=== PATIENT | female | born 1965 | race African-American/Black ===

== ENCOUNTER 2017-03-09 10:16 | Inpatient (IN) | payer OTHER ==
[2017-03-09 10:38] VITALS: BMI 19.3
--- NOTE | 2017-03-09 13:43 | HP ---
CIWA Score - CIWA Score Nausea/Vomitin-No Nausea/No Vomiting Muscle Tremors: 4-Moderate,w/Arms Extend Anxiety: 3 Agitation: 4-Moderately Restless Paroxysmal Sweats: 3 Orientation: 0-Oriented Tacttile Disturbances: 0-None Auditory Disturbances: 0-None Visual Disturbances: 0-None Headache: 1-Very Mild CIWA-Ar Total Score: 15 Admission ROS BHS - HPI Chief Complaint: I am here for detox. Allergies/Adverse Reactions: Allergies Allergy/AdvReac Type Severity Reaction Status Date / Time No Known Drug Allergies Allergy Unknown Verified 03/09/17 11:26 History of Present Illness: Pt is a 51yr old female with a history of alcohol and cocaine dependence seeking detox for treatment. Exam Limitations: Physical Impairment (unsteady gait d/t neuropathy. pt uses a walker) - Ebola screening Have you traveled outside of the country in the last 21 days: No Have you had contact with anyone from an Ebola affected area: No Have you been sick,other than usual withdrawal symptoms: No Do you have a fever: No - Review of Systems Constitutional: Chills, Changes in sleep EENT: reports: Blurred Vision (wear glasses) Respiratory: reports: No Symptoms reported Cardiac: reports: No Symptoms Reported GI: reports: Diarrhea, Poor Fluid Intake, Indigestion : reports: No Symptoms Reported Musculoskeletal: reports: Back Pain, Muscle Pain, Other (neuropathy lower legs) Integumentary: reports: Flushing, Sweating Neuro: reports: Headache, Tingling, Tremors Endocrine: reports: Excessive Sweating, Flushing, Intolerance to Cold, Intolerance to Heat Psychiatric: reports: No Sypmtoms Reported, Judgement Intact, Orientated x3, Agitated, Anxious Other Systems: Reviewed and Negative Patient History - Patient Medical History Hx Anemia: No Hx Asthma: Yes Hx Chronic Obstructive Pulmonary Disease (COPD): No Hx Cancer: No Hx Cardiac Disorders: No Hx Congestive Heart Failure: No Hx Hypertension: No Hx Hypercholesterolemia: No Hx Pacemaker: No HX Cerebrovascular Accident: No Hx Seizures: No Hx Dementia: No Hx Diabetes: No Hx Gastrointestinal Disorders: No Hx Liver Disease: No Hx Genitourinary Disorders: No Hx Sexually Transmitted Disorders: No Hx Renal Disease (ESRD): No Hx Thyroid Disease: No Hx Human Immunodeficiency Virus (HIV): Yes (in 1989; TCELLS 389 06/2014; viral load 1100) Hx Hepatitis C: No (negative) Hx Depression: Yes Hx Suicide Attempt: No (denies) Hx Bipolar Disorder: No Hx Schizophrenia: No Other Medical History: insomnia - Patient Surgical History Past Surgical History: Yes Hx Neurologic Surgery: No Hx Cataract Extraction: No Hx Cardiac Surgery: No Hx Lung Surgery: No Hx Breast Surgery: No Hx Breast Biopsy: No Hx Abdominal Surgery: Yes (right inguinal hernia in 11/25) Hx Appendectomy: No Hx Cholecystectomy: No Hx Genitourinary Surgery: No Hx Section: Yes (c/s x 2,last 23 years ago) Hx Orthopedic Surgery: No Other Surgical History: Inguinal hernia Anesthesia Reaction: No - PPD History Previous Implant?: Yes Documented Results: Negative w/o proof Implanted On Prior R Admission?: Yes PPD to be Administered?: Yes - Reproductive History Patient is a Female of Child Bearing Age (11 -55 yrs old): No Last Menstrual Period: 09/05/07 Patient : No - Smoking Cessation Smoking history: Current every day smoker Have you smoked in the past 12 months: Yes Aproximately how many cigarettes per day: 10 Cigars Per Day: 0 Hx Chewing Tobacco Use: No Initiated information on smoking cessation: Yes 'Breaking Loose' booklet given: 03/09/17 - Substance & Tx. History Hx Alcohol Use: Yes Hx Substance Use: Yes Substance Use Type: Alcohol, Cocaine Hx Substance Use Treatment: Yes (last detox detox 2013 at [facility]) - Substances Abused Crack Route: Smoking Frequency: 3-6 times per week Amount used: $50-100 Age of first use: 27 Date of Last Use: 03/08/17 Alcohol-beer/vodka/brrandy Route: Oral Frequency: Daily Amount used: 1 1/2-6 pks./1 pt. Age of first use: 13 Date of Last Use: 03/09/17 Family Disease History - Family Disease History Family Disease History: Other: Father (alcoholic ), Mother (alcoholic) Admission Physical Exam BHS - Vital Signs Vital Signs: Vital Signs - 24 hr 03/09/17 10:35 Temperature 96.9 F L Pulse Rate 69 Respiratory 18 Rate Blood Pressure 125/95 - Physical General Appearance: Yes: Appropriately Dressed, Moderate Distress, Thin, Tremorous, Irritable, Sweating, Anxious HEENTM: Yes: Hearing grossly Normal, Normal Voice Respiratory: Yes: Lungs Clear, Normal Breath Sounds, No Respiratory Distress Neck: Yes: No masses,lesions,Nodules Breast: Yes: Within Normal Limits Cardiology: Yes: Regular Rhythm, Regular Rate, S1, S2 Abdominal: Yes: Normal Bowel Sounds, Non Tender, Soft Genitourinary: Yes: Within Normal Limits Back: Yes: Normal Inspection Musculoskeletal: Yes: Back pain, Other (neuropathy to lower extremities) Extremities: Yes: Normal Inspection, Non-Tender, Tremors Neurological: Yes: Fully Oriented, Alert, Normal Response Integumentary: Yes: Normal Color, Diaphoresis Lymphatic: Yes: Within Normal Limits - Diagnostic (1) Alcohol dependence with uncomplicated withdrawal Current Visit: Yes Status: Chronic (2) Asthma Current Visit: Yes Status: Chronic Qualifiers: Asthma severity: mild intermittent Asthma complication type: uncomplicated Qualified Code(s): J45.20 - Mild intermittent asthma, uncomplicated (3) Cocaine dependence Current Visit: Yes Status: Chronic (4) HIV disease Current Visit: Yes Status: Chronic Comment: viral load 1100 CD4 389 (5) Nicotine dependence Current Visit: Yes Status: Chronic Qualifiers: Nicotine product type: cigarettes Substance use status: uncomplicated Qualified Code(s): F17.210 - Nicotine dependence, cigarettes, uncomplicated (6) Polyneuropathy Current Visit: Yes Status: Chronic Cleared for Admission [facility] - Detox or Rehab [facility] Level of Care: Medically Managed Detox Regimen/Protocol: Librium [facility] Breath Alcohol Content Breath Alcohol Content: 0.010 Urine Pregancy Test - Result Urine Test Results: Negative- NO Line Present Urine Drug Screen - Results Drug Screen Negative: No Urine Drug Screen Results: TERESITA-Cocaine
[2017-03-09] MEDS ORDERED: guaiFENesin/D-METHORPHAN HB 10 ML UNIT-DOSE CUPS PO PRN (13:45)
[2017-03-09] MEDS ORDERED: MENTHOL/PHENOL 1 EACH UD MM PRN (13:45)
[2017-03-09] MEDS ORDERED: diphenhydrAMINE HCL 50 MG CAPSULE PO PRN (13:45)
[2017-03-09] MEDS ORDERED: LOPERAMIDE HCL 2 MG CAPSULE PO PRN (13:45)
[2017-03-09] MEDS ORDERED: P-EPHED 60MG/TRIPROLIDI 2.5MG TABLET PO PRN (13:45)
[2017-03-09] MEDS ORDERED: MAGNESIUM HYDROX 2400MG/30ML ORAL SUSPENSION 30 ML CUP PO PRN (13:45)
[2017-03-09] MEDS ORDERED: IBUPROFEN 400 MG TABLET (FP) PO PRN (13:45)
[2017-03-09] MEDS ORDERED: MAGNESIUM CITRATE 300 ML BOTTLE PO PRN (13:45)
[2017-03-09] MEDS ORDERED: NICOTINE POLACRILEX 4 MG GUM BC PRN (13:45)
[2017-03-09] MEDS ORDERED: ACETAMINOPHEN 325 MG TABLET (FP) PO PRN (13:45)
[2017-03-09] MEDS ORDERED: hydrOXYzine PAMOATE 50 MG CAPSULE (FP) PO PRN (13:45)
[2017-03-09] MEDS ORDERED: MAG HYDROX/AL HYDROX/SIMETH 30 ML UNIT-DOSE CUP PO PRN (13:45)
[2017-03-09] MEDS ORDERED: chlordiazePOXIDE HCL 25 MG CAPSULE PO PRN (13:45)
[2017-03-09] MEDS ORDERED: ALBUTEROL SO4 6.7 GM HFA INHALER IH PRN (13:47)
[2017-03-09] MEDS ORDERED: chlordiazePOXIDE HCL 25 MG CAPSULE PO ONE (14:15)
--- NOTE | 2017-03-09 16:20 | EKG ---
Test Reason : Blood Pressure : / mmHG Vent. Rate : 069 BPM Atrial Rate : 069 BPM P-R Int : 164 ms QRS Dur : 086 ms QT Int : 426 ms P-R-T Axes : 072 059 064 degrees QTc Int : 456 ms NORMAL SINUS RHYTHM POSSIBLE ANTERIOR INFARCT , AGE UNDETERMINED ABNORMAL ECG NO PREVIOUS ECGS AVAILABLE Confirmed by KATIE STOKES MD ([id number]) on 03/09/2017 4:19:58 PM Referred By: Confirmed By:KATIE STOKES MD
[2017-03-09 17:04] LABS: MCH 28.3 pg (25.7-33.7); MCHC 32.9 g/dl (32.0-36.0); MEAN CELL VOLUME 86.1 fl (80-96); MEAN PLT VOLUME 10.9 fl (7.5-11.1); PLATELET COUNT 150 K/MM3 (134-434); RDW 15.6 % (11.6-15.6); WHITE BLOOD COUNT 3.4 K/mm3 (4.0-10.0)
[2017-03-09 17:10] LABS: URINE APPEARANCE CLEAR; URINE BILIRUBIN NEGATIVE (NEGATIVE); URINE BLOOD NEGATIVE (NEGATIVE); URINE COLOR LTYELLOW; URINE GLUCOSE (UA) NEGATIVE (NEGATIVE); URINE KETONE NEGATIVE (NEGATIVE); URINE LEUK ESTERASE NEGATIVE (NEGATIVE); URINE NITRITE NEGATIVE (NEGATIVE); URINE PROTEIN NEGATIVE (NEGATIVE); URINE UROBILINOGEN NEGATIVE mg/dL (0.2-1.0)
[2017-03-09 17:17] LABS: ALBUMIN 3.6 g/dl (3.4-5.0); ANION GAP 0 (8-16); CALCIUM 9.4 mg/dL (8.5-10.1); CO2 36 mmol/L (21-32); GLUCOSE,RANDOM 93 mg/dL (74-106)
[2017-03-09 17:20] LABS: ALK PHOS 69 U/L (45-117); BILIRUBIN,TOTAL 1.7 mg/dL (0.2-1.0); CREATININE 0.9 mg/dL (0.55-1.02); SGOT/AST 50 U/L (15-37); SGPT/ALT 63 U/L (12-78); TOT PROT 7.5 g/dl (6.4-8.2)
[2017-03-09] MEDS: chlordiazePOXIDE HCL 25 MG CAPSULE PO SCH ×2 (17:45→22:18)
[2017-03-09] MEDS: THIAMINE HCL 100 MG TABLET (FP) PO SCH (22:16)
[2017-03-10] MEDS: chlordiazePOXIDE HCL 25 MG CAPSULE PO SCH ×4 (07:07→23:09)
[2017-03-10] MEDS: ATAZANAVIR SO4 300 MG CAPSULE PO SCH (09:08)
[2017-03-10] MEDS: RITONAVIR 100 MG TABLET PO SCH (09:08)
[2017-03-10] MEDS: EMTRICITABINE 200MG/TENOFOVIR 300MG PO SCH (09:09)
[2017-03-10] MEDS: SULFAMETHOXAZOLE/TRIMETHOPRIM 800MG/160MG D.S. TABLET PO SCH (10:39)
[2017-03-10] MEDS: PRENATAL VITAMINS W/ FOLIC ACID TABLET (FP) PO SCH (10:39)
[2017-03-10] MEDS: NICOTINE 21 MG/24 HOURS TOPICAL PATCH TD SCH (10:41)
--- NOTE | 2017-03-10 11:59 | PN ---
[facility] CIWA - CIWA Score Nausea/Vomitin-No Nausea/No Vomiting Muscle Tremors: 3 Anxiety: 2 Agitation: 3 Paroxysmal Sweats: 3 Orientation: 0-Oriented Tacttile Disturbances: 0-None Auditory Disturbances: 0-None Visual Disturbances: 0-None Headache: 0-None Present CIWA-Ar Total Score: 11 [facility] Progress Note (SOAP) Subjective: tired sleepy sweats interrupted sleep Objective: 03/10/17 11:58 Vital Signs Temperature 97.5 F L 03/10/17 10:37 Pulse Rate 86 03/10/17 10:37 Respiratory Rate 18 03/10/17 10:37 Blood Pressure 115/74 03/10/17 10:37 O2 Sat by Pulse Oximetry (%) Laboratory Tests 03/09/17 03/09/17 03/09/17 14:00 14:00 14:00 WBC 3.4 L RBC 3.89 Hgb 11.0 D Hct 33.5 MCV 86.1 MCH 28.3 MCHC 32.9 RDW 15.6 Plt Count 150 MPV 10.9 D Sodium 139 Potassium 4.5 Chloride 103 Carbon Dioxide 36 H D Anion Gap 0 L BUN 13 D Creatinine 0.9 D Creat Clearance w eGFR > 60 Random Glucose 93 Calcium 9.4 Total Bilirubin 1.7 H D AST 50 H D ALT 63 D Alkaline Phosphatase 69 D Total Protein 7.5 Albumin 3.6 Urine Color Urine Appearance Urine pH Ur Specific [place] Urine Protein Urine Glucose (UA) Urine Ketones Urine Blood Urine Nitrite Urine Bilirubin Urine Urobilinogen Ur Leukocyte Esterase RPR Titer Nonreactive 03/09/17 15:00 WBC RBC Hgb Hct MCV MCH MCHC RDW Plt Count MPV Sodium Potassium Chloride Carbon Dioxide Anion Gap BUN Creatinine Creat Clearance w eGFR Random Glucose Calcium Total Bilirubin AST ALT Alkaline Phosphatase Total Protein Albumin Urine Color Ltyellow Urine Appearance Clear Urine pH 7.0 Ur Specific [place] 1.015 Urine Protein Negative Urine Glucose (UA) Negative Urine Ketones Negative Urine Blood Negative Urine Nitrite Negative Urine Bilirubin Negative Urine Urobilinogen Negative Ur Leukocyte Esterase Negative RPR Titer awake/alert lying in bed no acute distress Assessment: 03/10/17 11:58 withdrawal sx Plan: hold 10am librium increase fluids
--- NOTE | 2017-03-10 15:42 | CONSULT ---
[facility] Psychiatric Consult - Data Date of interview: 03/10/17 Admission source: [facility] Identifying data: Readmission to [facility] for this 51 y/o AA female seeeking detox treatment on for alcohol and cocaine (crack) dependence.Patient is ,a mother of two,domiciled,unemployed and supported on SSI benefits. Substance Abuse History: Confirmed by patient in my interview. Smoking Cessation. Smoking history: Current every day smoker. Have you smoked in the past 12 months: Yes. Aproximately how many cigarettes per day: 10. Cigars Per Day: 0. Hx Chewing Tobacco Use: No. Initiated information on smoking cessation : Yes. 'Breaking Loose' booklet given: 03/09/17. - Substance & Tx. History. Hx Alcohol Use: Yes. Hx Substance Use: Yes. Substance Use Type: Alcohol, Cocaine. Hx Substance Use Treatment: Yes (last detox detox [address] [facility]). - Substances Abused. Crack. Route: Smoking. Frequency: 3-6 times per week. Amount used: $50-100. Age of first use: 27. Date of Last Use: . Alcohol-beer/vodka/brrandy. Route: Oral. Frequency: Daily. Amount used: 1 1/2-6 pks./1 pt. Age of first use: 13. Date of Last Use: 03/09/17 Medical History: Significant for bronchial asthma,HIV infection since 1989 ( history of pneumocystis carinii pneumonia),hepatitis B and neuropathy.Noted additional history of right inguinal herniorraphy. Psychiatric History: Patient denies history of psychiatric illness or hospitalizations.Ms Kim reports that she was prescribed seroquel 25 mg/hs for insomnia (in the course of a medical admisssion at [facility] ) in the past.No history of suicide attempts. Physical/Sexual Abuse/Trauma History: Patient denies. Additional Comment: Urine Drug Screen Results: TERESITA-Cocaine.Noted. Mental Status Exam - Mental Status Exam Alert and Oriented to: Time, Place, Person Cognitive Function: Good Patient Appearance: Well Groomed Mood: Nervous, Withdrawn Affect: Mood Congruent Patient Behavior: Sedated (mildly sedated), Fatigued Speech Pattern: Clear Voice Loudness: Moderately Soft/Quiet Thought Process: Intact, Goal Oriented Thought Disorder: Not Present Hallucinations: Denies Suicidal Ideation: Denies Homicidal Ideation: Denies Insight/Judgement: Poor Sleep: Poorly, Difficulty falling asleep (requests a low dose of seroquel) Appetite: Poor, Weight loss Gait/Station: Other (ambulates with a walker) Psychiatric Findings - Problem List (Ephra[place] 1, 2,3) (1) Alcohol dependence with uncomplicated withdrawal Current Visit: Yes Status: Acute (2) Cocaine dependence Current Visit: Yes Status: Acute (3) Nicotine dependence Current Visit: Yes Status: Acute Qualifiers: Nicotine product type: cigarettes Substance use status: uncomplicated Qualified Code(s): F17.210 - Nicotine dependence, cigarettes, uncomplicated (4) Asthma Current Visit: Yes Status: Chronic Qualifiers: Asthma severity: mild intermittent Asthma complication type: uncomplicated Qualified Code(s): J45.20 - Mild intermittent asthma, uncomplicated (5) HIV disease Current Visit: Yes Status: Chronic Comment: viral load 1100 CD4 389 (6) Polyneuropathy Current Visit: Yes Status: Chronic (7) Insomnia Current Visit: Yes Status: Acute - Initial Treatment Plan Initial Treatment Plan: Psychoeducation provided.Detoxification in progress.Seroquel 25 mg po hs (patient's request).Side effects/benefits discussed with the patient.Ms Kim is in agreement with this careplan.Observation and falls precautions.
[2017-03-10] MEDS ORDERED: QUEtiapine FUMARATE 25 MG TABLET (FP) PO SCH (22:00)
[2017-03-10] MEDS: THIAMINE HCL 100 MG TABLET (FP) PO SCH (23:06)
[2017-03-11] MEDS: chlordiazePOXIDE HCL 25 MG CAPSULE PO SCH ×2 (06:38→11:09)
[2017-03-11 10:47] VITALS: BP 120/69; PULSE 82; TEMP 98.2
[2017-03-11] MEDS: RITONAVIR 100 MG TABLET PO SCH (11:06)
[2017-03-11] MEDS: EMTRICITABINE 200MG/TENOFOVIR 300MG PO SCH (11:06)
[2017-03-11] MEDS: SULFAMETHOXAZOLE/TRIMETHOPRIM 800MG/160MG D.S. TABLET PO SCH (11:07)
[2017-03-11] MEDS: PRENATAL VITAMINS W/ FOLIC ACID TABLET (FP) PO SCH (11:07)
[2017-03-11] MEDS: ATAZANAVIR SO4 300 MG CAPSULE PO SCH (11:07)
[2017-03-11] MEDS: NICOTINE 21 MG/24 HOURS TOPICAL PATCH TD SCH (11:09)
--- NOTE | 2017-03-11 12:20 | PN ---
S CIWA - CIWA Score Nausea/Vomitin Muscle Tremors: 3 Anxiety: 2 Agitation: 2 Paroxysmal Sweats: No Perspiration Orientation: 0-Oriented Tacttile Disturbances: 1-Very Mild Itch/Numbness Auditory Disturbances: 1-Very Mild Visual Disturbances: 1-Very Mild Sensitivity Headache: 2-Mild CIWA-Ar Total Score: 14 S Progress Note (SOAP) Subjective: alert,irritable,anxious,interrupted sleep, Objective: 03/11/17 12:18 Vital Signs Temperature 98.2 F 03/11/17 10:00 Pulse Rate 82 03/11/17 10:00 Respiratory Rate 18 03/11/17 10:00 Blood Pressure 120/69 03/11/17 10:00 O2 Sat by Pulse Oximetry (%) Laboratory Last Values WBC 3.4 K/mm3 (4.0-10.0) L 03/09/17 14:00 RBC 3.89 M/mm3 (3.60-5.2) 03/09/17 14:00 Hgb 11.0 GM/dL (10.7-15.3) D 03/09/17 14:00 Hct 33.5 % (32.4-45.2) 03/09/17 14:00 MCV 86.1 fl (80-96) 03/09/17 14:00 MCH 28.3 pg (25.7-33.7) 03/09/17 14:00 MCHC 32.9 g/dl (32.0-36.0) 03/09/17 14:00 RDW 15.6 % (11.6-15.6) 03/09/17 14:00 Plt Count 150 K/MM3 (134-434) 03/09/17 14:00 MPV 10.9 fl (7.5-11.1) D 03/09/17 14:00 Sodium 139 mmol/L (136-145) 03/09/17 14:00 Potassium 4.5 mmol/L (3.5-5.1) 03/09/17 14:00 Chloride 103 mmol/L (98-107) 03/09/17 14:00 Carbon Dioxide 36 mmol/L (21-32) H D 03/09/17 14:00 Anion Gap 0 (8-16) L 03/09/17 14:00 BUN 13 mg/dL (7-18) D 03/09/17 14:00 Creatinine 0.9 mg/dL (0.55-1.02) D 03/09/17 14:00 Creat Clearance w eGFR > 60 (>60) 03/09/17 14:00 Random Glucose 93 mg/dL (74-106) 03/09/17 14:00 Calcium 9.4 mg/dL (8.5-10.1) 03/09/17 14:00 Total Bilirubin 1.7 mg/dL (0.2-1.0) H D 03/09/17 14:00 AST 50 U/L (15-37) H D 03/09/17 14:00 ALT 63 U/L (12-78) D 03/09/17 14:00 Alkaline Phosphatase 69 U/L (45-117) D 03/09/17 14:00 Total Protein 7.5 g/dl (6.4-8.2) 03/09/17 14:00 Albumin 3.6 g/dl (3.4-5.0) 03/09/17 14:00 Urine Color Ltyellow 03/09/17 15:00 Urine Appearance Clear 03/09/17 15:00 Urine pH 7.0 (5.0-8.0) 03/09/17 15:00 Ur Specific [place] 1.015 (1.005-1.025) 03/09/17 15:00 Urine Protein Negative (NEGATIVE) 03/09/17 15:00 Urine Glucose (UA) Negative (NEGATIVE) 03/09/17 15:00 Urine Ketones Negative (NEGATIVE) 03/09/17 15:00 Urine Blood Negative (NEGATIVE) 03/09/17 15:00 Urine Nitrite Negative (NEGATIVE) 03/09/17 15:00 Urine Bilirubin Negative (NEGATIVE) 03/09/17 15:00 Urine Urobilinogen Negative mg/dL (0.2-1.0) 03/09/17 15:00 Ur Leukocyte Esterase Negative (NEGATIVE) 03/09/17 15:00 RPR Titer Nonreactive (NONREACTIVE) 03/09/17 14:00 Assessment: 03/11/17 12:19 withdrawal symptom Plan: continue detox
--- NOTE | 2017-03-11 12:22 | PN ---
S Progress Note Note: patient did not want to complete treatment for personal reason,seen by counselor ,signed release ama
--- NOTE | 2017-03-11 12:27 | DS ---
[facility] Detox Discharge Summary Admission Date: 03/09/17 Discharge Date: 03/11/17 - History Present History: Alcohol Dependence, Cocaine Dependence Additional Comments: follow up with after [facility] program as arrangement Pertinent Past History: asthma hiv nicotine dependence polyneuropathy insomnia ambulate with walker - Physical Exam Results Vital Signs: Vital Signs Temperature 98.2 F 03/11/17 10:00 Pulse Rate 82 03/11/17 10:00 Respiratory Rate 18 03/11/17 10:00 Blood Pressure 120/69 03/11/17 10:00 O2 Sat by Pulse Oximetry (%) Pertinent Admission Physical Exam Findings: withdrawal symptom - Treatment Patient has Accepted a Rehab Referral to: declined - Medication Discharge Medications: Ambulatory Orders Emtricitabine/Tenofovir [Truvada 200 mg-300 mg Tablet] 1 each PO DAILY 11/09/12 Quetiapine Fumarate [Seroquel -] 50 mg PO HS #30 tab 08/29/14 Albuterol Sulfate Inhaler - [Ventolin HFA Inhaler -] 2 inh IH Q4H PRN #1 inh Atazanavir [Reyataz -] 300 mg PO DAILY@0800 #30 capsule 09/01/14 Ritonavir [Norvir -] 100 mg PO DAILY #30 tab 09/01/14 Sulfamethoxazole/Trimethoprim [Bactrim Ds Tablet] 1 each PO DAILY 02/05/15 Quetiapine Fumarate [Seroquel -] 25 mg PO HS #30 tablet 03/10/17 - Diagnosis (1) Alcohol dependence with uncomplicated withdrawal Current Visit: Yes Status: Acute (2) Cocaine dependence Current Visit: Yes Status: Acute (3) Insomnia Current Visit: Yes Status: Acute (4) Nicotine dependence Current Visit: Yes Status: Acute Qualifiers: Nicotine product type: cigarettes Substance use status: uncomplicated Qualified Code(s): F17.210 - Nicotine dependence, cigarettes, uncomplicated (5) Asthma Current Visit: Yes Status: Chronic Qualifiers: Asthma severity: mild intermittent Asthma complication type: uncomplicated Qualified Code(s): J45.20 - Mild intermittent asthma, uncomplicated (6) HIV disease Current Visit: Yes Status: Chronic (7) Polyneuropathy Current Visit: Yes Status: Chronic (8) Weight loss Current Visit: Yes Status: Acute (9) Walker as ambulation aid Current Visit: Yes Status: Acute - AMA Did Patient Leave Against Medical Advice: Yes
[2017-03-11] MEDS ORDERED: chlordiazePOXIDE 5 MG CAPSULE PO SCH (17:00)
[2017-03-12] MEDS ORDERED: chlordiazePOXIDE HCL 10 MG CAPSULE PO SCH (17:00)
== END 2017-03-11 12:25 | disposition left against medical advice (07) | DRG 770 ==
LOC: YASAS 10:16 → Y6N 12:11
PROVIDERS: ADMIT Internal Medicine; ATTEND Internal Medicine
PROC: HZ2ZZZZ Detoxification Services for Substance Abuse Treatment (ICD-10-PCS; principal; 2017-03-11)
DX: F10.230 Alcohol dependence with withdrawal, uncomplicated (principal); F14.20 Cocaine dependence, uncomplicated; F17.210 Nicotine dependence, cigarettes, uncomplicated; G47.00 Insomnia, unspecified; G62.9 Polyneuropathy, unspecified; Z21 Asymptomatic human immunodeficiency virus [HIV] infection status; J45.20 Mild intermittent asthma, uncomplicated; R63.4 Abnormal weight loss; Z68.1 Body mass index [BMI] 19.9 or less, adult; R26.89 Other abnormalities of gait and mobility
CPT/HCPCS: 36415; 80053; 81003; 85027; 86593; 93005; 93010

== ENCOUNTER 2019-05-03 11:09 | Inpatient (IN) | payer OTHER ==
[2019-05-03 12:40] VITALS: BMI 20.9
--- NOTE | 2019-05-03 13:25 | HP ---
CIWA Score Nausea/Vomitin-No Nausea/No Vomiting Muscle Tremors: 3 Anxiety: 2 Agitation: 3 Paroxysmal Sweats: 2 Orientation: 1-Uncertain about Date Tacttile Disturbances: 0-None Auditory Disturbances: 0-None Visual Disturbances: 0-None Headache: 2-Mild CIWA-Ar Total Score: 13 - Admission Criteria OASAS Guidelines: Admission for Medically Managed Detox: Requires at least one of the followin. CIWA greater than 12 2. Seizures within the past 24 hours 3. Delirium tremens within the past 24 hours 4. Hallucinations within the past 24 hours 5. Acute intervention needed for co occurring medical disorder 6. Acute intervention needed for co occurring psychiatric disorder 7. Severe withdrawal that cannot be handled at a lower level of care (continued vomiting, continued diarrhea, abnormal vital signs) requiring intravenous medication and/or fluids 8. Patient presents the following: CIWA greater than 12 Admission Criteria Met: Admission criteria met Admitting History and Physical - Past Medical History ...LMP: 09/05/07 - Smoking History Smoking history: Current every day smoker Have you smoked in the past 12 months: Yes Aproximately how many cigarettes per day: 10 - Alcohol/Substance Use Hx Alcohol Use: Yes Admission ROS [facility] Chief Complaint: Liliya Kim is a 53 year old female presenting for alcohol and cocaine abuse. Allergies/Adverse Reactions: Allergies Allergy/AdvReac Type Severity Reaction Status Date / Time No Known Drug Allergies Allergy Unknown Verified 05/03/19 12:30 History of Present Illness: iLliya Kim is a 53 year old female presenting for alcohol and cocaine abuse. Alcohol: 2 12oz cans of beer. Daily drinker. Last drink earlier this morning. Has been drinking since 16. Has been drinking heaving for the last several years. Has a history of seizure several years prior most recently. Has had a history of blackouts. Has had falls but without head hits. Longest period of sobriety: 6 months while in a shelter. Cocaine: 70$ every 2 weeks. Most recent use 1 week prior. Denies IVDU. Use by smoking Has been to detox and rehab in the past. Plans after detox: wants to go to an inpatient rehab. Medical History: HIV+ (CD4 435, undetectable viral load) takes Biktravy daily and endorses consistent use, bronchitis, Hep B (treated), peripheral neuropathy Surgical History: hernia repair, C-sections Psychiatric History: depression Smokin-8 cigarettes daily Social: apartment, lives alone. In housing with medical staff on premises. Has 2 sisters, 1 brother. Is in contact with family. 2 sons, is in contact with children. Exam Limitations: No Limitations - Ebola screening Have you traveled outside of the country in the last 21 days: No Have you had contact with anyone from an Ebola affected area: No Do you have a fever: No - Review of Systems Constitutional: No Symptoms Reported EENT: reports: No Symptoms Reported Respiratory: reports: No Symptoms reported Cardiac: reports: No Symptoms Reported GI: reports: No Symptoms Reported : reports: No Symptoms Reported Musculoskeletal: reports: Back Pain Integumentary: reports: No Symptoms Reported Neuro: reports: Headache (mild) Endocrine: reports: No Symptoms Reported Hematology: reports: No Symptoms Reported Psychiatric: reports: Anxious Patient History - Patient Medical History Hx Anemia: No Hx Asthma: Yes Hx Chronic Obstructive Pulmonary Disease (COPD): No Hx Cancer: No Hx Cardiac Disorders: No Hx Congestive Heart Failure: No Hx Hypertension: No Hx Hypercholesterolemia: No Hx Pacemaker: No HX Cerebrovascular Accident: No Hx Seizures: No Hx Dementia: No Hx Diabetes: No Hx Gastrointestinal Disorders: No Hx Liver Disease: No Hx Genitourinary Disorders: No Hx Sexually Transmitted Disorders: No Hx Renal Disease (ESRD): No Hx Thyroid Disease: No Hx Human Immunodeficiency Virus (HIV): Yes (in 1989; TCELLS 389 06/2014; viral load 1100) Hx Hepatitis C: No (negative) Hx Depression: Yes Hx Suicide Attempt: No (denies) Hx Bipolar Disorder: No Hx Schizophrenia: No - Patient Surgical History Past Surgical History: Yes Hx Neurologic Surgery: No Hx Cataract Extraction: No Hx Cardiac Surgery: No Hx Lung Surgery: No Hx Breast Surgery: No Hx Breast Biopsy: No Hx Abdominal Surgery: Yes (right inguinal hernia in 11/25) Hx Appendectomy: No Hx Cholecystectomy: No Hx Genitourinary Surgery: No Hx Section: Yes (c/s x 2,last 23 years ago) Hx Orthopedic Surgery: No Other Surgical History: Inguinal hernia Anesthesia Reaction: No - PPD History Previous Implant?: Yes Documented Results: Negative w/o proof Implanted On Prior R Admission?: Yes Date: 03/11/17 Results: 0 mm PPD to be Administered?: Yes - Reproductive History Patient is a Female of Child Bearing Age (11 -55 yrs old): No Last Menstrual Period: 09/05/07 - Smoking Cessation Smoking history: Current every day smoker Have you smoked in the past 12 months: Yes Aproximately how many cigarettes per day: 10 Cigars Per Day: 0 Hx Chewing Tobacco Use: No Initiated information on smoking cessation: Yes 'Breaking Loose' booklet given: 05/03/19 - Substance & Tx. History Hx Alcohol Use: Yes Hx Substance Use: Yes Substance Use Type: Alcohol, Cocaine - Substances abused Alcohol Substance route: Oral Frequency: Daily Amount used: 2 CANS OF BEER (12 OUNCES) Age of first use: 16 Date of last use: 05/03/19 Crack Substance route: Smoking Frequency: 1-3 times last 30 days Amount used: $30 Age of first use: 33 Date of last use: 04/26/19 Admission Physical Exam BHS - Vital Signs Vital Signs: Vital Signs - 24 hr 05/03/19 12:29 Temperature 98.7 F Pulse Rate 84 Respiratory 20 Rate Blood Pressure 120/70 - Physical General Appearance: Yes: Disheveled, Mild Distress, Tremorous, Anxious HEENTM: Yes: EOMI, Normal Voice, BJ, Pharynx Normal, Other (missing teeth, has dentures) Respiratory: Yes: Chest Non-Tender, No Respiratory Distress, No Accessory Muscle Use, Wheezing (mild expiratory wheezing) Neck: Yes: No masses,lesions,Nodules, Trachea in good position Breast: Yes: Breast Exam Deferred Cardiology: Yes: Regular Rhythm, Regular Rate, S1, S2 Abdominal: Yes: Normal Bowel Sounds, Non Tender, Flat, Soft Genitourinary: Yes: Within Normal Limits Back: Yes: Normal Inspection Musculoskeletal: Yes: full range of Motion, Back pain Extremities: Yes: Normal Capillary Refill, Normal Inspection, Normal Range of Motion, Non-Tender Neurological: Yes: health program director II-XII NML intact, Alert, Motor Strength 5/5, Other ( poor gait, necessitates assistive device) Integumentary: Yes: Normal Color, Dry, Warm, Other (dry skin noted on bilateral feet) - Diagnostic (1) Alcohol dependence with uncomplicated withdrawal Current Visit: No Status: Acute (2) Cocaine dependence Current Visit: No Status: Acute (3) Insomnia Current Visit: No Status: Acute (4) Walker as ambulation aid Current Visit: No Status: Acute (5) Weight loss Current Visit: No Status: Acute (6) Asthma Current Visit: No Status: Chronic Qualifiers: Asthma severity: mild intermittent Asthma complication type: uncomplicated (7) HIV disease Current Visit: No Status: Chronic Comment: viral load 1100 CD4 389 (8) Polyneuropathy Current Visit: No Status: Chronic Cleared for Admission S - Detox or Rehab [facility] Level of Care: Medically Managed Detox Regimen/Protocol: Librium Breathalyzer - Breathalyzer Breathalyzer: 0 Urine Drug Screen - Test Device Lot number: [id number] Expiration date: 12/14/20 - Control Is test valid?: Yes - Results Drug screen NEGATIVE: Yes Inpatient Rehab Admission - Rehab Decision to Admit Inpatient rehab admission?: No
--- NOTE | 2019-05-03 13:47 | PN ---
"Teaching Attending Note Name of Resident: Rahul Sharp ATTENDING PHYSICIAN STATEMENT I saw and evaluated the patient. I reviewed the resident's note and discussed the case with the resident. I agree with the resident's findings and plan as documented. SUBJECTIVE: OBJECTIVE:wnwd Search Terms: sarah inman, 1965 Search Date: 05/03/2019 01:46:52 PM This report was requested by: Umm Holley | Reference #: [id number] There are no results for the search terms that you entered. Vital Signs - 24 hr 05/03/19 12:29 Temperature 98.7 F Pulse Rate 84 Respiratory 20 Rate Blood Pressure 120/70 ASSESSMENT AND PLAN: Alcohol use disorder - Librium detox."
[2019-05-03] MEDS ORDERED: MAG HYDROX/AL HYDROX/SIMETH 30 ML UNIT-DOSE CUP PO PRN (13:52)
[2019-05-03] MEDS ORDERED: ACETAMINOPHEN 325 MG TABLET (FP) PO PRN ×2 (13:52)
[2019-05-03] MEDS ORDERED: MAGNESIUM HYDROX 2400MG/30ML ORAL SUSPENSION 30 ML CUP PO PRN (13:52)
[2019-05-03] MEDS ORDERED: BISMUTH SUBSALICYLATE 262 MG/15 ML BTL PO PRN (13:52)
[2019-05-03] MEDS ORDERED: IBUPROFEN 400 MG TABLET (FP) PO PRN (13:52)
[2019-05-03] MEDS ORDERED: MAGNESIUM CITRATE 300 ML BOTTLE PO PRN (13:52)
[2019-05-03] MEDS ORDERED: MENTHOL/PHENOL 1 EACH UD MM PRN (13:52)
[2019-05-03] MEDS ORDERED: chlordiazePOXIDE HCL 10 MG CAPSULE PO PRN (13:52)
[2019-05-03] MEDS ORDERED: hydrOXYzine PAMOATE 25 MG CAPSULE (FP) PO PRN (13:52)
[2019-05-03] MEDS ORDERED: ALBUTEROL SO4 8 GM HFA INHALER IH PRN (13:54)
[2019-05-03] MEDS: chlordiazePOXIDE HCL 25 MG CAPSULE PO SCH ×2 (14:54→22:23)
--- NOTE | 2019-05-03 17:46 | CONSULT ---
[facility] Psychiatric Consult - Data Date of interview: 05/03/19 Admission source: [facility] Identifying data: This is one of several admissions to [facility] for this 53 y/ o AA female self-referred for detoxification treatment. RYAN issues : alcohol, crack/cocaine, cannabis, nicotine (self-report). Interviewed at [address] [place] [address]. Patient is , a mother of two, domiciled, unemployed, disabled and supported on SSI benefits. Substance Abuse History: Discussed with patient. Details concordant with current [facility] report as follows : Smoking history: Current every day smoker. Have you smoked in the past 12 months: Yes. Aproximately how many cigarettes per day: 10. Cigars Per Day: 0. Hx Chewing Tobacco Use: No. Initiated information on smoking cessation: Yes. 'Breaking Loose' booklet given: . - Substance & Tx. History. Hx Alcohol Use: Yes. Hx Substance Use: Yes. Substance Use Type: Alcohol, Cocaine. - Substances abused. Alcohol. Substance route: Oral. Frequency: Daily. Amount used: 2 CANS OF BEER (12 OUNCES). Age of first use: 16. Date of last use: 05/03/19. Crack. Substance route: Smoking. Frequency: 1-3 times last 30 days. Amount used: $ 30. Age of first use: 33. 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 Psychiatric History: No reported history of psychiatric hospitalizations, OPD care or suicide attempts. Ms Kim reports that she gets prescribed seroquel 50 mg/hs (primary care physician) to address insomnia. " I don't have a mental illness." . She declares a preference for quetiapine instead of trazodone. Physical/Sexual Abuse/Trauma History: Patient denies. Additional Comment: Drug screen is negative. Mental Status Exam - Mental Status Exam Alert and Oriented to: Time, Place, Person Cognitive Function: Good Patient Appearance: Well Groomed Mood: Hopeful, Euthymic Affect: Appropriate, Normal Range Patient Behavior: Appropriate, Cooperative Speech Pattern: Clear Voice Loudness: Normal Thought Process: Intact, Goal Oriented Thought Disorder: Not Present Hallucinations: Denies Suicidal Ideation: Denies Homicidal Ideation: Denies Insight/Judgement: Poor Sleep: Poorly, Difficulty falling asleep Appetite: Fair Gait/Station: Other (patient moves around with a walker) Psychiatric Findings - Problem List ([place] 1, 2,3) (1) Alcohol dependence with uncomplicated withdrawal Current Visit: Yes Status: Acute (2) Cocaine dependence Current Visit: Yes Status: Chronic (3) Nicotine dependence Current Visit: Yes Status: Chronic Qualifiers: Nicotine product type: cigarettes Substance use status: uncomplicated Qualified Code(s): F17.210 - Nicotine dependence, cigarettes, uncomplicated (4) Insomnia Current Visit: Yes Status: Chronic - Initial Treatment Plan Initial Treatment Plan: Psychoeducation. Sleep hygiene. Detoxification. Seroquel 50 mg po hs (patient's request). Side effects/benefits discussed with the patient. Ms Kim gave verbal consent to MD. Cabrera.
[2019-05-03] MEDS: THIAMINE HCL 100 MG TABLET (FP) PO SCH (22:23)
[2019-05-03] MEDS: MELATONIN 5 MG TABLETS PO PRN (22:24)
[2019-05-04] MEDS: chlordiazePOXIDE HCL 25 MG CAPSULE PO SCH ×3 (05:55→22:56)
[2019-05-04] MEDS ORDERED: PATIENT'S OWN MEDICATION (NON-FORMULARY) (Bictegrav/Emtricit/Tenofov Ala 1 EACH) PO SCH (10:00)
[2019-05-04 10:17] LABS: ALBUMIN 3.3 g/dl (3.4-5.0); BILIRUBIN,TOTAL 0.3 mg/dL (0.2-1); BLOOD UREA NITROGEN 21.8 mg/dL (7-18); CALCIUM 8.9 mg/dL (8.5-10.1); CREATININE 0.8 mg/dL (0.55-1.3); POTASSIUM 3.7 mmol/L (3.5-5.1); TOT PROT 6.8 g/dl (6.4-8.2)
[2019-05-04] MEDS: PRENATAL VITAMINS W/ FOLIC ACID TABLET (FP) PO SCH (10:24)
[2019-05-04] MEDS: BICTEGRAV/EMTRICIT/TENOFOV (BIKTARVY) 50-200-25 MG TABLET PO SCH (10:24)
[2019-05-04] MEDS: NICOTINE 7 MG/24 HOURS TOPICAL PATCH TD SCH (10:24)
[2019-05-04] MEDS: NICOTINE POLACRILEX 2 MG GUM BUC PRN (10:26)
[2019-05-04 10:36] LABS: HEMATOCRIT 33.3 % (32.4-45.2); HEMOGLOBIN 11.2 GM/dL (10.7-15.3); MCH 28.8 pg (25.7-33.7); MCHC 33.7 g/dl (32.0-36.0); MEAN CELL VOLUME 85.5 fl (80-96); MEAN PLT VOLUME 9.2 fl (7.5-11.1); PLATELET COUNT 147 K/MM3 (134-434); RDW 14.1 % (11.6-15.6); WHITE BLOOD COUNT 4.2 K/mm3 (4.0-10.0)
--- NOTE | 2019-05-04 14:07 | PN ---
S CIWA - CIWA Score Nausea/Vomitin Muscle Tremors: 3 Anxiety: 2 Agitation: 2 Paroxysmal Sweats: 2 Orientation: 0-Oriented Tacttile Disturbances: 0-None Auditory Disturbances: 0-None Visual Disturbances: 0-None Headache: 1-Very Mild CIWA-Ar Total Score: 12 BHS Progress Note (SOAP) Subjective: pt admitted yesterday for alcohol detoc O: Vital Signs - 24 hr 05/03/19 05/03/19 05/03/19 15:48 18:14 22:17 Temperature 99.0 F 98.6 F 97.8 F Pulse Rate 95 H 81 83 Respiratory 18 18 18 Rate Blood Pressure 123/79 128/81 114/73 05/04/19 05/04/19 05/04/19 00:39 03:30 06:26 Temperature 97.1 F L Pulse Rate 54 L Respiratory 18 18 18 Rate Blood Pressure 114/70 05/04/19 05/04/19 09:50 13:35 Temperature 96.7 F L 98.6 F Pulse Rate 71 71 Respiratory 18 18 Rate Blood Pressure 109/66 107/61 Laboratory Tests 05/04/19 05/04/19 05/04/19 08:00 08:00 08:00 WBC 4.2 RBC 3.90 Hgb 11.2 Hct 33.3 MCV 85.5 MCH 28.8 MCHC 33.7 RDW 14.1 Plt Count 147 MPV 9.2 D Sodium 139 Potassium 3.7 Chloride 103 Carbon Dioxide 32 Anion Gap 4 L BUN 21.8 H Creatinine 0.8 Est GFR (CKD-EPI)AfAm 96.19 Est GFR (CKD-EPI)NonAf 83.00 Random Glucose 109 H Calcium 8.9 Total Bilirubin 0.3 AST 26 ALT 39 Alkaline Phosphatase 78 Total Protein 6.8 Albumin 3.3 L RPR Titer Nonreactive a/p: continue alcohol detox. mild anemia
[2019-05-04] MEDS: THIAMINE HCL 100 MG TABLET (FP) PO SCH (22:56)
[2019-05-04] MEDS: MELATONIN 5 MG TABLETS PO PRN (22:58)
[2019-05-05] MEDS ORDERED: chlordiazePOXIDE HCL 10 MG CAPSULE PO SCH (05:00)
[2019-05-05 09:55] VITALS: BP 100/64; PULSE 80; TEMP 97.9
--- NOTE | 2019-05-05 09:57 | PN ---
[facility] CIWA - CIWA Score Nausea/Vomitin-Mild Nausea/No Vomiting Muscle Tremors: 2 Anxiety: 3 Agitation: 2 Paroxysmal Sweats: 1-Minimal Palms Moist Orientation: 0-Oriented Tacttile Disturbances: 0-None Auditory Disturbances: 1-Very Mild Visual Disturbances: 0-None Headache: 0-None Present CIWA-Ar Total Score: 10 S Progress Note (SOAP) Subjective: doing well with librium detox regimen feeling better ambulating on hallway social with peers in day room less tremor sleep better at night Objective: 05/05/19 09:56 Vital Signs Temperature 97.9 F 05/05/19 09:55 Pulse Rate 80 05/05/19 09:55 Respiratory Rate 18 05/05/19 09:55 Blood Pressure 100/64 05/05/19 09:55 O2 Sat by Pulse Oximetry (%) Laboratory Last Values WBC 4.2 K/mm3 (4.0-10.0) 05/04/19 08:00 RBC 3.90 M/mm3 (3.60-5.2) 05/04/19 08:00 Hgb 11.2 GM/dL (10.7-15.3) 05/04/19 08:00 Hct 33.3 % (32.4-45.2) 05/04/19 08:00 MCV 85.5 fl (80-96) 05/04/19 08:00 MCH 28.8 pg (25.7-33.7) 05/04/19 08:00 MCHC 33.7 g/dl (32.0-36.0) 05/04/19 08:00 RDW 14.1 % (11.6-15.6) 05/04/19 08:00 Plt Count 147 K/MM3 (134-434) 05/04/19 08:00 MPV 9.2 fl (7.5-11.1) D 05/04/19 08:00 Sodium 139 mmol/L (136-145) 05/04/19 08:00 Potassium 3.7 mmol/L (3.5-5.1) 05/04/19 08:00 Chloride 103 mmol/L (98-107) 05/04/19 08:00 Carbon Dioxide 32 mmol/L (21-32) 05/04/19 08:00 Anion Gap 4 MMOL/L (8-16) L 05/04/19 08:00 BUN 21.8 mg/dL (7-18) H 05/04/19 08:00 Creatinine 0.8 mg/dL (0.55-1.3) 05/04/19 08:00 Est GFR (CKD-EPI)AfAm 96.19 05/04/19 08:00 Est GFR (CKD-EPI)NonAf 83.00 05/04/19 08:00 Random Glucose 109 mg/dL (74-106) H 05/04/19 08:00 Calcium 8.9 mg/dL (8.5-10.1) 05/04/19 08:00 Total Bilirubin 0.3 mg/dL (0.2-1) 05/04/19 08:00 AST 26 U/L (15-37) 05/04/19 08:00 ALT 39 U/L (13-61) 05/04/19 08:00 Alkaline Phosphatase 78 U/L (45-117) 05/04/19 08:00 Total Protein 6.8 g/dl (6.4-8.2) 05/04/19 08:00 Albumin 3.3 g/dl (3.4-5.0) L 05/04/19 08:00 RPR Titer Nonreactive (NONREACTIVE) 05/04/19 08:00 lab noted Assessment: 05/05/19 09:57 alcohol withdrawal sx Plan: continue librium detox regimen
[2019-05-05] MEDS: BICTEGRAV/EMTRICIT/TENOFOV (BIKTARVY) 50-200-25 MG TABLET PO SCH (10:37)
[2019-05-05] MEDS: PRENATAL VITAMINS W/ FOLIC ACID TABLET (FP) PO SCH (10:37)
[2019-05-05] MEDS: NICOTINE 7 MG/24 HOURS TOPICAL PATCH TD SCH (10:37)
[2019-05-05] MEDS: NICOTINE POLACRILEX 2 MG GUM BUC PRN (10:38)
--- NOTE | 2019-05-05 15:14 | DS ---
[facility] Detox Discharge Summary Admission Date: 05/03/19 Discharge Date: 05/05/19 - History Present History: Alcohol Dependence Additional Comments: 53 years old female admitted on 05/03/19 for alcohol withdrawal sx management did well with librium detox regimen no complication through out the detox stay alert oriented x 3 speech clearly coherently cardiac S1S2 regular rate rhythm respiratory clear lung bilaterally on auscultation skin warm and dry Pertinent Past History: after lunch patient states that her sister is in the hospital estimate discharge date is 05/06/19 feeling better and prefers return home to help her sister - Physical Exam Results Vital Signs: Vital Signs Temperature 97.9 F 05/05/19 09:55 Pulse Rate 80 05/05/19 09:55 Respiratory Rate 18 05/05/19 09:55 Blood Pressure 100/64 05/05/19 09:55 O2 Sat by Pulse Oximetry (%) Pertinent Admission Physical Exam Findings: alcohol withdrawal sx Laboratory Last Values WBC 4.2 K/mm3 (4.0-10.0) 05/04/19 08:00 RBC 3.90 M/mm3 (3.60-5.2) 05/04/19 08:00 Hgb 11.2 GM/dL (10.7-15.3) 05/04/19 08:00 Hct 33.3 % (32.4-45.2) 05/04/19 08:00 MCV 85.5 fl (80-96) 05/04/19 08:00 MCH 28.8 pg (25.7-33.7) 05/04/19 08:00 MCHC 33.7 g/dl (32.0-36.0) 05/04/19 08:00 RDW 14.1 % (11.6-15.6) 05/04/19 08:00 Plt Count 147 K/MM3 (134-434) 05/04/19 08:00 MPV 9.2 fl (7.5-11.1) D 05/04/19 08:00 Sodium 139 mmol/L (136-145) 05/04/19 08:00 Potassium 3.7 mmol/L (3.5-5.1) 05/04/19 08:00 Chloride 103 mmol/L (98-107) 05/04/19 08:00 Carbon Dioxide 32 mmol/L (21-32) 05/04/19 08:00 Anion Gap 4 MMOL/L (8-16) L 05/04/19 08:00 BUN 21.8 mg/dL (7-18) H 05/04/19 08:00 Creatinine 0.8 mg/dL (0.55-1.3) 05/04/19 08:00 Est GFR (CKD-EPI)AfAm 96.19 05/04/19 08:00 Est GFR (CKD-EPI)NonAf 83.00 05/04/19 08:00 Random Glucose 109 mg/dL (74-106) H 05/04/19 08:00 Calcium 8.9 mg/dL (8.5-10.1) 05/04/19 08:00 Total Bilirubin 0.3 mg/dL (0.2-1) 05/04/19 08:00 AST 26 U/L (15-37) 05/04/19 08:00 ALT 39 U/L (13-61) 05/04/19 08:00 Alkaline Phosphatase 78 U/L (45-117) 05/04/19 08:00 Total Protein 6.8 g/dl (6.4-8.2) 05/04/19 08:00 Albumin 3.3 g/dl (3.4-5.0) L 05/04/19 08:00 RPR Titer Nonreactive (NONREACTIVE) 05/04/19 08:00 lab noted - Treatment Hospital Course: Detox Protocol Followed, Detoxed Safely, Responded well, Discharged Condition Good, Rehab Referral Accepted Patient has Accepted a Rehab Referral to: [facility] - Medication Discharge Medications: Ambulatory Orders Quetiapine Fumarate [Seroquel -] 50 mg PO HS #30 tab 08/29/14 Albuterol Sulfate Inhaler - [Ventolin HFA Inhaler -] 2 inh IH Q4H PRN #1 inh Bictegrav/Emtricit/Tenofov Ala [Biktarvy 50-200-25 mg Tablet] 1 each PO DAILY Quetiapine Fumarate [Seroquel -] 50 mg PO HS 05/03/19 - Diagnosis (1) Alcohol dependence with uncomplicated withdrawal Status: Acute (2) Walker as ambulation aid Status: Chronic (3) Weight loss Status: Acute (4) Asthma Status: Chronic Qualifiers: Asthma severity: mild Asthma persistence: intermittent Asthma complication type: uncomplicated Qualified Code(s): J45.20 - Mild intermittent asthma, uncomplicated (5) HIV disease Status: Chronic (6) Nicotine dependence Status: Acute Qualifiers: Nicotine product type: cigarettes Substance use status: in withdrawal Qualified Code(s): F17.213 - Nicotine dependence, cigarettes, with withdrawal - AMA Did Patient Leave Against Medical Advice: No CIWA Score - CIWA Score Nausea/Vomitin-No Nausea/No Vomiting Muscle Tremors: 1-None Visible, but [place] Anxiety: 1-Mildly Anxious Agitation: 2 Paroxysmal Sweats: 1-Minimal Palms Moist Orientation: 0-Oriented Tacttile Disturbances: 0-None Auditory Disturbances: 1-Very Mild Visual Disturbances: 0-None Headache: 0-None Present CIWA-Ar Total Score: 6
[2019-05-06] MEDS ORDERED: chlordiazePOXIDE HCL 10 MG CAPSULE PO ONE (05:00)
== END 2019-05-05 13:46 | disposition home or self-care (01) | DRG 774 ==
LOC: YASAS 11:09 → Y3N 14:16
PROVIDERS: ADMIT Allergy & Immunology; ATTEND Allergy & Immunology
PROC: HZ2ZZZZ Detoxification Services for Substance Abuse Treatment (ICD-10-PCS; principal; 2019-05-03)
DX: F10.230 Alcohol dependence with withdrawal, uncomplicated (principal); F14.20 Cocaine dependence, uncomplicated; F17.210 Nicotine dependence, cigarettes, uncomplicated; F32.9 Major depressive disorder, single episode, unspecified; Z21 Asymptomatic human immunodeficiency virus [HIV] infection status; J45.20 Mild intermittent asthma, uncomplicated; G47.00 Insomnia, unspecified; Z68.21 Body mass index [BMI] 21.0-21.9, adult; D64.9 Anemia, unspecified; Z99.89 Dependence on other enabling machines and devices
CPT/HCPCS: 36415; 80053; 85027; 86593

== ENCOUNTER 2019-09-01 12:17 | Inpatient (IN) | payer OTHER ==
--- NOTE | 2019-09-01 16:47 | BHS.RME ---
Substance Use & Tx History - Substance Use History Alcohol Substance amount: rum when she can afford or beer 2 cans-3 cans of beer Frequency of use: Daily Substance route: Oral Cocaine (Crack) Substance amount: $20-30 dollars/week Frequency of use: Less than 3 times per week - Last Treatment Date of last treatment: 04/2019 Treatment type: Substance Use Disorder (RYAN) Where was last treatment: Detox Physical/Psych/Mental Status - Behavior Eye Contact: Normal - Physical Health Problems Is patient presently having any pain?: Yes (back pain) Does patient presently have any injuries (include location): Yes (states he slipped in her apartment yesterday- fell on her back) Does patient currently have a fever: No Is patient : No CIWA Nausea/Vomitin-Mild Nausea/No Vomiting Muscle Tremors: 5 Anxiety: 2 Agitation: 2 Paroxysmal Sweats: 1-Minimal Palms Moist Orientation: 0-Oriented Tacttile Disturbances: 0-None Auditory Disturbances: 0-None Visual Disturbances: 0-None Headache: 2-Mild CIWA-Ar Total Score: 13 Treatment Recommendation - Level of Care Level of Care: Acute Medical (admit for alcohol detox)
--- NOTE | 2019-09-01 18:32 | HP ---
CIWA Score Nausea/Vomitin-Mild Nausea/No Vomiting Muscle Tremors: 5 Anxiety: 2 Agitation: 2 Paroxysmal Sweats: 1-Minimal Palms Moist Orientation: 0-Oriented Tacttile Disturbances: 0-None Auditory Disturbances: 0-None Visual Disturbances: 0-None Headache: 2-Mild CIWA-Ar Total Score: 13 - Admission Criteria OASAS Guidelines: Admission for Medically Managed Detox: Requires at least one of the followin. CIWA greater than 12 2. Seizures within the past 24 hours 3. Delirium tremens within the past 24 hours 4. Hallucinations within the past 24 hours 5. Acute intervention needed for co occurring medical disorder 6. Acute intervention needed for co occurring psychiatric disorder 7. Severe withdrawal that cannot be handled at a lower level of care (continued vomiting, continued diarrhea, abnormal vital signs) requiring intravenous medication and/or fluids 8. Admitting History and Physical - Past Medical History ...LMP: 09/05/07 - Smoking History Smoking history: Current every day smoker Have you smoked in the past 12 months: Yes Aproximately how many cigarettes per day: 10 - Alcohol/Substance Use Hx Alcohol Use: Yes Admission ROS [facility] Chief Complaint: here for alcohol detox Allergies/Adverse Reactions: Allergies Allergy/AdvReac Type Severity Reaction Status Date / Time No Known Drug Allergies Allergy Unknown Verified 09/01/19 18:23 History of Present Illness: 53yo with several admissions in the past for alcohol use disorders. HIV pos. Pt states she had a last drink yesterday. Was last here 4 months ago. Lives alone in apartment in [place]. Pt states she got drunk yesterday and fell on back/ buttocks area. Says this prompted here to come here for detox. uses 30-40 dollars of crack- 4-5 times per month drinks beer 3-4 cans/day, no seizures, No DT's Meds: seroquel, biktarvy and MVI PCP- HIV clinic at [facility] DUR- shows no meds Utox- negative SHERI- 0 - Ebola screening Have you traveled outside of the country in the last 21 days: No Have you had contact with anyone from an Ebola affected area: No Have you been sick,other than usual withdrawal symptoms: No Do you have a fever: No - Review of Systems Constitutional: No Symptoms Reported EENT: reports: No Symptoms Reported Respiratory: reports: No Symptoms reported Cardiac: reports: No Symptoms Reported GI: reports: No Symptoms Reported : reports: No Symptoms Reported Musculoskeletal: reports: No Symptoms Reported Integumentary: reports: No Symptoms Reported Neuro: reports: No Symptoms reported Endocrine: reports: No Symptoms Reported Hematology: reports: No Symptoms Reported Psychiatric: reports: No Sypmtoms Reported Other Systems: Reviewed and Negative Patient History - Patient Medical History Hx Anemia: No Hx Asthma: Yes Hx Chronic Obstructive Pulmonary Disease (COPD): No Hx Cancer: No Hx Cardiac Disorders: No Hx Congestive Heart Failure: No Hx Hypertension: No Hx Hypercholesterolemia: No Hx Pacemaker: No HX Cerebrovascular Accident: No Hx Seizures: No Hx Dementia: No Hx Diabetes: No Hx Gastrointestinal Disorders: No Hx Liver Disease: No Hx Genitourinary Disorders: No Hx Sexually Transmitted Disorders: No Hx Renal Disease (ESRD): No Hx Thyroid Disease: No Hx Human Immunodeficiency Virus (HIV): Yes (in 1989; TCELLS 389 06/2014; viral load 1100) Hx Hepatitis C: No (negative) Hx Depression: No Hx Suicide Attempt: No Hx Bipolar Disorder: No Hx Schizophrenia: No - Patient Surgical History Past Surgical History: Yes Hx Neurologic Surgery: No Hx Cataract Extraction: No Hx Cardiac Surgery: No Hx Lung Surgery: No Hx Breast Surgery: No Hx Breast Biopsy: No Hx Abdominal Surgery: Yes (right inguinal hernia in 11/25) Hx Appendectomy: No Hx Cholecystectomy: No Hx Genitourinary Surgery: No Hx Section: Yes (c/s x 2,last 23 years ago) Hx Orthopedic Surgery: No Other Surgical History: Inguinal hernia Anesthesia Reaction: No - PPD History Date: 05/05/19 Results: 0 mm - Reproductive History Last Menstrual Period: 09/05/07 - Smoking Cessation Smoking history: Current every day smoker Have you smoked in the past 12 months: Yes Aproximately how many cigarettes per day: 5 Cigars Per Day: 0 Hx Chewing Tobacco Use: No Initiated information on smoking cessation: Yes 'Breaking Loose' booklet given: 09/01/19 - Substance & Tx. History Hx Alcohol Use: Yes Hx Substance Use: No Substance Use Type: Alcohol Hx Substance Use Treatment: Yes Admission Physical Exam [facility] - Physical General Appearance: Yes: Within Normal Limits, Cachetic, Thin HEENTM: Yes: Within Normal Limits, Other (edentulous) Respiratory: Yes: Within Normal Limits, Lungs Clear Neck: Yes: Within Normal Limits Cardiology: Yes: Within Normal Limits, Regular Rhythm, Regular Rate Abdominal: Yes: Within Normal Limits, Normal Bowel Sounds Genitourinary: Yes: Within Normal Limits Musculoskeletal: Yes: Within Normal Limits, full range of Motion, Other (needs walker to ambulate) Extremities: Yes: Within Normal Limits Neurological: Yes: Within Normal Limits, Normal Response Integumentary: Yes: Within Normal Limits Lymphatic: Yes: Within Normal Limits - Diagnostic (1) HIV disease Current Visit: No Status: Chronic Comment: viral load 1100 CD4 389 (2) Polyneuropathy Current Visit: No Status: Chronic (3) Walker as ambulation aid Current Visit: No Status: Chronic (4) Alcohol dependence with uncomplicated withdrawal Current Visit: No Status: Acute Breathalyzer - Breathalyzer Breathalyzer: 0 Urine Drug Screen - Test Device Lot number: [id number] Expiration date: 06/10/21 - Control Is test valid?: Yes - Results Drug screen NEGATIVE: Yes Inpatient Rehab Admission - Rehab Decision to Admit Inpatient rehab admission?: No
[2019-09-01 18:38] VITALS: BMI 21.7
[2019-09-01] MEDS ORDERED: MAGNESIUM HYDROX 2400MG/30ML ORAL SUSPENSION 30 ML CUP PO PRN (18:44)
[2019-09-01] MEDS ORDERED: IBUPROFEN 400 MG TABLET (FP) PO PRN (18:44)
[2019-09-01] MEDS ORDERED: ACETAMINOPHEN 325 MG TABLET (FP) PO PRN ×2 (18:44)
[2019-09-01] MEDS ORDERED: NICOTINE POLACRILEX 2 MG GUM BUC PRN (18:44)
[2019-09-01] MEDS ORDERED: MAG HYDROX/AL HYDROX/SIMETH 30 ML UNIT-DOSE CUP PO PRN (18:44)
[2019-09-01] MEDS ORDERED: MENTHOL/PHENOL 1 EACH UD MM PRN (18:44)
[2019-09-01] MEDS ORDERED: hydrOXYzine PAMOATE 25 MG CAPSULE (FP) PO PRN (18:44)
[2019-09-01] MEDS ORDERED: MAGNESIUM CITRATE 300 ML BOTTLE PO PRN (18:44)
[2019-09-01] MEDS ORDERED: BISMUTH SUBSALICYLATE 524 MG/30 ML UD PO PRN (18:44)
[2019-09-01] MEDS ORDERED: METHOCARBAMOL 500 MG TABLET PO PRN (18:44)
[2019-09-01] MEDS ORDERED: MELATONIN 5 MG TABLETS PO PRN (18:44)
[2019-09-01] MEDS ORDERED: ALBUTEROL SO4 HFA INHALER IH PRN (18:46)
[2019-09-01] MEDS ORDERED: LORazepam 1 MG TABLET PO PRN (18:48)
[2019-09-01] MEDS ORDERED: LORazepam 2 MG TABLET PO ONE (19:30)
[2019-09-01] MEDS: THIAMINE HCL 100 MG TABLET (FP) PO SCH (22:22)
[2019-09-01] MEDS: LORazepam 2 MG TABLET PO SCH (22:22)
[2019-09-01] MEDS: QUEtiapine FUMARATE 50 MG TABLET PO PRN (22:22)
[2019-09-02] MEDS: LORazepam 2 MG TABLET PO SCH ×4 (06:51→22:31)
[2019-09-02 10:18] LABS: ALBUMIN 3.5 g/dl (3.4-5.0); BILIRUBIN,TOTAL 0.3 mg/dL (0.2-1); BLOOD UREA NITROGEN 22.6 mg/dL (7-18); CALCIUM 8.7 mg/dL (8.5-10.1); CREATININE 0.8 mg/dL (0.55-1.3); TOT PROT 7.5 g/dl (6.4-8.2)
[2019-09-02 10:25] LABS: HEMATOCRIT 37.2 % (32.4-45.2); HEMOGLOBIN 12.2 GM/dL (10.7-15.3); MCH 27.7 pg (25.7-33.7); MCHC 32.7 g/dl (32.0-36.0); MEAN CELL VOLUME 84.9 fl (80-96); MEAN PLT VOLUME 9.3 fl (7.5-11.1); PLATELET COUNT 136 K/MM3 (134-434); RBC 4.38 M/mm3 (3.60-5.2); RDW 14.1 % (11.6-15.6); WHITE BLOOD COUNT 3.6 K/mm3 (4.0-10.0)
[2019-09-02] MEDS: NICOTINE 7 MG/24 HOURS TOPICAL PATCH TD SCH (10:29)
[2019-09-02] MEDS: PRENATAL VITAMINS W/ FOLIC ACID TABLET (FP) PO SCH (10:29)
[2019-09-02] MEDS: BICTEGRAV/EMTRICIT/TENOFOV (BIKTARVY) 50-200-25 MG TABLET PO SCH (11:25)
--- NOTE | 2019-09-02 14:30 | PN ---
[facility] CIWA - CIWA Score Nausea/Vomitin-Mild Nausea/No Vomiting Muscle Tremors: 2 Anxiety: 2 Agitation: 2 Paroxysmal Sweats: No Perspiration Orientation: 0-Oriented Tacttile Disturbances: 1-Very Mild Itch/Numbness Auditory Disturbances: 0-None Visual Disturbances: 0-None Headache: 2-Mild CIWA-Ar Total Score: 10 S Progress Note (SOAP) Subjective: alert,irritable,anxious,dry skin Objective: 09/02/19 14:28 Vital Signs Temperature 97.9 F 09/02/19 09:10 Pulse Rate 83 09/02/19 09:10 Respiratory Rate 16 09/02/19 09:10 Blood Pressure 116/51 L 09/02/19 09:10 O2 Sat by Pulse Oximetry (%) Laboratory Last Values WBC 3.6 K/mm3 (4.0-10.0) L 09/02/19 07:30 RBC 4.38 M/mm3 (3.60-5.2) 09/02/19 07:30 Hgb 12.2 GM/dL (10.7-15.3) 09/02/19 07:30 Hct 37.2 % (32.4-45.2) 09/02/19 07:30 MCV 84.9 fl (80-96) 09/02/19 07:30 MCH 27.7 pg (25.7-33.7) 09/02/19 07:30 MCHC 32.7 g/dl (32.0-36.0) 09/02/19 07:30 RDW 14.1 % (11.6-15.6) 09/02/19 07:30 Plt Count 136 K/MM3 (134-434) 09/02/19 07:30 MPV 9.3 fl (7.5-11.1) 09/02/19 07:30 Sodium 139 mmol/L (136-145) 09/02/19 07:30 Potassium 4.0 mmol/L (3.5-5.1) 09/02/19 07:30 Chloride 104 mmol/L (98-107) 09/02/19 07:30 Carbon Dioxide 29 mmol/L (21-32) 09/02/19 07:30 Anion Gap 6 MMOL/L (8-16) L 09/02/19 07:30 BUN 22.6 mg/dL (7-18) H 09/02/19 07:30 Creatinine 0.8 mg/dL (0.55-1.3) 09/02/19 07:30 Est GFR (CKD-EPI)AfAm 96.19 09/02/19 07:30 Est GFR (CKD-EPI)NonAf 83.00 09/02/19 07:30 Random Glucose 143 mg/dL (74-106) H 09/02/19 07:30 Calcium 8.7 mg/dL (8.5-10.1) 09/02/19 07:30 Total Bilirubin 0.3 mg/dL (0.2-1) 09/02/19 07:30 AST 20 U/L (15-37) 09/02/19 07:30 ALT 29 U/L (13-61) 09/02/19 07:30 Alkaline Phosphatase 71 U/L (45-117) 09/02/19 07:30 Total Protein 7.5 g/dl (6.4-8.2) 09/02/19 07:30 Albumin 3.5 g/dl (3.4-5.0) 09/02/19 07:30 RPR Titer Nonreactive (NONREACTIVE) 09/02/19 07:30 Assessment: 09/02/19 14:28 withdrawal symptom Plan: continue detox,encourage oral fluid,bgm monitoring
[2019-09-02] MEDS: THIAMINE HCL 100 MG TABLET (FP) PO SCH (22:31)
[2019-09-02] MEDS: AMMONIUM LACTATE 12% LOTION 225 GM BOTTLE TP SCH (22:31)
[2019-09-03] MEDS: LORazepam 1 MG TABLET PO SCH ×4 (05:02→22:00)
--- NOTE | 2019-09-03 09:41 | PN ---
S CIWA - CIWA Score Nausea/Vomitin-No Nausea/No Vomiting Muscle Tremors: 1-None Visible, but [place] Anxiety: 1-Mildly Anxious Agitation: 1-Slight > Activity Paroxysmal Sweats: 1-Minimal Palms Moist Orientation: 0-Oriented Tacttile Disturbances: 0-None Auditory Disturbances: 0-None Visual Disturbances: 0-None Headache: 1-Very Mild CIWA-Ar Total Score: 5 BHS Progress Note (SOAP) Subjective: pt states she is getting better on detox protocol- no complaints today. O: Vital Signs - 24 hr 09/02/19 09/03/19 09/03/19 17:05 00:08 03:36 Temperature 97.7 F Pulse Rate 82 Respiratory 18 18 18 Rate Blood Pressure 119/75 09/03/19 09/03/19 05:30 06:37 Temperature 97.3 F L Pulse Rate 75 75 Respiratory 18 18 Rate Blood Pressure 113/75 Laboratory Tests 09/02/19 09/02/19 09/02/19 07:30 07:30 07:30 WBC 3.6 L RBC 4.38 Hgb 12.2 Hct 37.2 MCV 84.9 MCH 27.7 MCHC 32.7 RDW 14.1 Plt Count 136 MPV 9.3 Sodium 139 Potassium 4.0 Chloride 104 Carbon Dioxide 29 Anion Gap 6 L BUN 22.6 H Creatinine 0.8 Est GFR (CKD-EPI)AfAm 96.19 Est GFR (CKD-EPI)NonAf 83.00 Random Glucose 143 H Calcium 8.7 Total Bilirubin 0.3 AST 20 ALT 29 Alkaline Phosphatase 71 Total Protein 7.5 Albumin 3.5 RPR Titer Nonreactive a/p: AUD- completing detox protocol. pt doing well.
[2019-09-03] MEDS: PRENATAL VITAMINS W/ FOLIC ACID TABLET (FP) PO SCH (10:05)
[2019-09-03] MEDS: BICTEGRAV/EMTRICIT/TENOFOV (BIKTARVY) 50-200-25 MG TABLET PO SCH (10:06)
[2019-09-03] MEDS: NICOTINE 7 MG/24 HOURS TOPICAL PATCH TD SCH (10:06)
[2019-09-03] MEDS: AMMONIUM LACTATE 12% LOTION 225 GM BOTTLE TP SCH ×2 (10:06→22:00)
[2019-09-03] MEDS: QUEtiapine FUMARATE 50 MG TABLET PO PRN (21:57)
[2019-09-03] MEDS: THIAMINE HCL 100 MG TABLET (FP) PO SCH (22:00)
[2019-09-04] MEDS ORDERED: LORazepam 0.5 MG TABLET PO PRN
[2019-09-04] MEDS: LORazepam 0.5 MG TABLET PO SCH ×4 (06:25→22:21)
[2019-09-04] MEDS: BICTEGRAV/EMTRICIT/TENOFOV (BIKTARVY) 50-200-25 MG TABLET PO SCH (10:55)
[2019-09-04] MEDS: PRENATAL VITAMINS W/ FOLIC ACID TABLET (FP) PO SCH (10:55)
[2019-09-04] MEDS: NICOTINE 7 MG/24 HOURS TOPICAL PATCH TD SCH (10:56)
[2019-09-04] MEDS: AMMONIUM LACTATE 12% LOTION 225 GM BOTTLE TP SCH ×2 (10:58→23:00)
--- NOTE | 2019-09-04 14:16 | PN ---
S CIWA - CIWA Score Nausea/Vomitin-No Nausea/No Vomiting Muscle Tremors: 1-None Visible, but [place] Anxiety: 1-Mildly Anxious Agitation: 1-Slight > Activity Paroxysmal Sweats: 1-Minimal Palms Moist Orientation: 0-Oriented Tacttile Disturbances: 1-Very Mild Itch/Numbness Auditory Disturbances: 0-None Visual Disturbances: 0-None Headache: 0-None Present CIWA-Ar Total Score: 5 BHS Progress Note (SOAP) Subjective: interrupted sleep Objective: 09/04/19 14:20 Vital Signs Temperature 99.2 F 09/04/19 08:42 Pulse Rate 90 09/04/19 08:42 Respiratory Rate 09/04/19 08:42 Blood Pressure 115/69 09/04/19 08:42 O2 Sat by Pulse Oximetry (%) Laboratory Tests 09/02/19 09/02/19 09/02/19 07:30 07:30 07:30 WBC 3.6 L RBC 4.38 Hgb 12.2 Hct 37.2 MCV 84.9 MCH 27.7 MCHC 32.7 RDW 14.1 Plt Count 136 MPV 9.3 Sodium 139 Potassium 4.0 Chloride 104 Carbon Dioxide 29 Anion Gap 6 L BUN 22.6 H Creatinine 0.8 Est GFR (CKD-EPI)AfAm 96.19 Est GFR (CKD-EPI)NonAf 83.00 Random Glucose 143 H Calcium 8.7 Total Bilirubin 0.3 AST 20 ALT 29 Alkaline Phosphatase 71 Total Protein 7.5 Albumin 3.5 RPR Titer Nonreactive pt aox3 in nad , lying in bed hasd a walker 09/04/19 14:20 Assessment: 09/04/19 14:21 withdrawal sx's Plan: cont. detox increase fluids d/c in am
[2019-09-04] MEDS: THIAMINE HCL 100 MG TABLET (FP) PO SCH (22:21)
[2019-09-04] MEDS: QUEtiapine FUMARATE 50 MG TABLET PO PRN (22:23)
[2019-09-05] MEDS ORDERED: LORazepam 0.5 MG TABLET PO ONE (05:00)
[2019-09-05] MEDS: PRENATAL VITAMINS W/ FOLIC ACID TABLET (FP) PO SCH (10:18)
[2019-09-05] MEDS: NICOTINE 7 MG/24 HOURS TOPICAL PATCH TD SCH (10:18)
[2019-09-05] MEDS: BICTEGRAV/EMTRICIT/TENOFOV (BIKTARVY) 50-200-25 MG TABLET PO SCH (10:19)
[2019-09-05] MEDS: AMMONIUM LACTATE 12% LOTION 225 GM BOTTLE TP SCH (10:19)
[2019-09-05 10:52] VITALS: BP 129/75; PULSE 85; TEMP 98.2
--- NOTE | 2019-09-05 11:40 | DS ---
[facility] Detox Discharge Summary Admission Date: 09/01/19 Discharge Date: 09/05/19 - History Present History: Alcohol Dependence Pertinent Past History: Pt admitted for alcohol detox. Completed detox- no complaints. Going to rehab today. Several admissions in the past for alcohol use disorder. HIV pos. P Lives alone in apartment in [place]. Pt uses walker for assistance in ambulation uses 30-40 dollars of crack- 4-5 times per month drinks beer 3-4 cans/day, no seizures, No DT's Meds: seroquel, biktarvy and MVI PCP- HIV clinic at [email or web address] - Physical Exam Results Vital Signs: Vital Signs Temperature 98.2 F 09/05/19 08:44 Pulse Rate 85 09/05/19 08:44 Respiratory Rate 18 09/05/19 08:44 Blood Pressure 129/75 09/05/19 08:44 O2 Sat by Pulse Oximetry (%) - Treatment Hospital Course: Detox Protocol Followed, Detoxed Safely, Responded well, Discharged Condition Good, Rehab Referral Accepted - Medication Discharge Medications: Ambulatory Orders Quetiapine Fumarate [Seroquel -] 50 mg PO HS #30 tab 08/29/14 Bictegrav/Emtricit/Tenofov Ala [Biktarvy 50-200-25 mg Tablet] 1 each PO DAILY Quetiapine Fumarate [Seroquel -] 50 mg PO HS 05/03/19 Albuterol Sulfate Inhaler - [Ventolin HFA Inhaler -] 2 inh IH Q4H PRN #1 inh - Diagnosis (1) HIV disease Current Visit: No Status: Chronic (2) Polyneuropathy Current Visit: No Status: Chronic (3) Walker as ambulation aid Current Visit: No Status: Chronic (4) Alcohol dependence with uncomplicated withdrawal Current Visit: No Status: Acute
== END 2019-09-05 13:13 | disposition other institution (70) | DRG 774 ==
LOC: YASAS 12:17 → Y6N 18:53
PROVIDERS: ADMIT Allergy & Immunology; ATTEND Allergy & Immunology
PROC: HZ2ZZZZ Detoxification Services for Substance Abuse Treatment (ICD-10-PCS; principal; 2019-09-01)
DX: F10.230 Alcohol dependence with withdrawal, uncomplicated (principal); F14.10 Cocaine abuse, uncomplicated; F17.210 Nicotine dependence, cigarettes, uncomplicated; Z21 Asymptomatic human immunodeficiency virus [HIV] infection status; G62.9 Polyneuropathy, unspecified; Z99.89 Dependence on other enabling machines and devices; Z87.09 Personal history of other diseases of the respiratory system
CPT/HCPCS: 36415; 80053; 85027; 86593

== ENCOUNTER 2019-09-05 13:04 | Inpatient (IN) | payer OTHER ==
[2019-09-05] MEDS ORDERED: MENTHOL/PHENOL 1 EACH UD MM PRN (13:34)
[2019-09-05] MEDS ORDERED: MAGNESIUM HYDROX 2400MG/30ML ORAL SUSPENSION 30 ML CUP PO PRN (13:34)
[2019-09-05] MEDS ORDERED: LOPERAMIDE HCL 2 MG CAPSULE PO PRN (13:34)
[2019-09-05] MEDS ORDERED: IBUPROFEN 400 MG TABLET (FP) PO PRN (13:34)
[2019-09-05] MEDS ORDERED: guaiFENesin 200 MG/10 ML 10 ML UNIT-DOSE CUPS PO PRN (13:34)
[2019-09-05] MEDS ORDERED: MAG HYDROX/AL HYDROX/SIMETH 30 ML UNIT-DOSE CUP PO PRN (13:34)
[2019-09-05] MEDS ORDERED: hydrOXYzine PAMOATE 50 MG CAPSULE (FP) PO PRN (13:34)
[2019-09-05] MEDS ORDERED: ACETAMINOPHEN 325 MG TABLET (FP) PO PRN (13:34)
[2019-09-05] MEDS ORDERED: MAGNESIUM CITRATE 300 ML BOTTLE PO PRN (13:34)
[2019-09-05] MEDS ORDERED: P-EPHED 60MG/TRIPROLIDI 2.5MG TABLET PO PRN (13:34)
[2019-09-05] MEDS ORDERED: NICOTINE POLACRILEX 2 MG GUM BUC PRN (13:34)
[2019-09-05] MEDS ORDERED: ALBUTEROL SO4 HFA INHALER IH PRN (13:38)
--- NOTE | 2019-09-05 13:41 | HP ---
[facility] Rehab Assess/Revision - Admission History Admitted to Rehab from: [facility] Date of Admission to Rehab: 09/05/19 - Vital signs Vital Signs: Vital Signs Period Temp Pulse Resp BP Sys/Saba Pulse Ox Last 24 Hr 98.0 F 86 18 134/74 - Findings Detox History & Physical reviewed: Yes Concur with findings: Yes Inpatient Rehab Admission - Rehab Decision to Admit Inpatient rehab admission?: Yes - Initial Determination Are CD services needed?: Yes Free of communicable disease: Yes Not in need of hospitalization: Yes - Rehab Admission Criteria Previous failed treatment: Yes Poor recovery environment: Yes Comorbidities: Yes Lacks judgement: Yes Patient is meeting Inpatient Rehab admission criteria:: Yes
--- NOTE | 2019-09-05 13:45 | PN ---
[facility] Progress Note Note: [facility] Labs, problem list, prior orders, notes, home medications reviewed. P/E: general: no apparent distress HEENTM: normocephalic, PERRLA Neck:supple MSK: full ROM, ambulates with walker. Neuro: CN 2-12 intact A/P: ETOH dependence Cocaine Use Continue rehab Maintain safety Hydration
[2019-09-05] MEDS ORDERED: PT OWN MED DRAWER 7, Y5N ONE ×2 (14:28→22:18)
[2019-09-05] MEDS: METHOCARBAMOL 500 MG TABLET PO SCH ×3 (14:39→21:34)
[2019-09-05] MEDS ORDERED: MELATONIN 5 MG TABLETS PO PRN (22:00)
[2019-09-05] MEDS ORDERED: THIAMINE HCL 100 MG TABLET (FP) PO SCH (22:00)
[2019-09-06 07:05] VITALS: BP 105/62; PULSE 67; TEMP 98.5
--- NOTE | 2019-09-06 09:07 | DS ---
[facility] Rehab Discharge Summary - [facility] Rehab Discharge Summary Admission Date: 09/05/19 Discharge Date: 09/06/19 - History Present History: Alcohol dependence, Cocaine dependence Pertinent Past History: 53yo with several admissions in the past for alcohol use disorders. HIV pos.Was last here 4 months ago. Lives alone in apartment in [place]. Completed detox and was admitted for rehab. uses 30-40 dollars of crack- 4-5 times per month drinks beer 3-4 cans/day, no seizures, No DT's Meds: seroquel, biktarvy and MVI PCP- HIV clinic at [facility]. - Discharge Physical Exam Vital Signs: Vital Signs Temperature 98.5 F 09/06/19 06:30 Pulse Rate 67 09/06/19 06:30 Respiratory Rate 18 09/06/19 06:30 Blood Pressure 105/62 09/06/19 06:30 O2 Sat by Pulse Oximetry (%) Pertinent Admission Physical Exam Findings: Physical General Appearance: No apparent distress HEENTM: Normocephalic, PERRLA, edentulous Respiratory: respirations unlabored Neck: supple Musculoskeletal:needs walker to ambulate Neurological: CN2-12 intact - Treatment Discharge Condition: Outpatient referral accepted (medically stable for discharge; patient did not stay long enough to secure a referral. She will return home.) Hospital Course: patient was admitted to rehab yesterday afternoon and she has decided to leave today for personal reasons. - Medication Discharge Medications: Ambulatory Orders Quetiapine Fumarate [Seroquel -] 50 mg PO HS 05/03/19 Albuterol Sulfate Inhaler - [Ventolin HFA Inhaler -] 2 inh IH Q4H PRN #1 inh Bictegrav/Emtricit/Tenofov Ala [Biktarvy 50-200-25 mg Tablet] 1 each PO DAILY # 30 tablet 09/06/19 - Medication-Assisted Treatment (MAT) Medication-Assisted Treatment (MAT): No - Discharge Instructions Diet, activity, other medical instructions: Diet: as tolerated Activity: as tolerated Other medical instructions: Please consider returning to rehab after personal issues are resolved. - Diagnosis (1) Alcohol dependence with uncomplicated withdrawal Current Visit: No Status: Chronic (2) Cocaine dependence Current Visit: No Status: Chronic - Follow-up Referral Minutes to complete discharge: 12 - AMA Did Patient Leave Against Medical Advice: Yes
[2019-09-06] MEDS ORDERED: PT OWN MED DRAWER 7, Y5N ONE (09:34)
[2019-09-06] MEDS: METHOCARBAMOL 500 MG TABLET PO SCH (09:51)
[2019-09-06] MEDS ORDERED: PATIENT'S OWN MEDICATION (NON-FORMULARY) (Bictegrav/Emtricit/Tenofov Ala 1 EACH) PO SCH (10:00)
[2019-09-06] MEDS ORDERED: BICTEGRAV/EMTRICIT/TENOFOV (BIKTARVY) 50-200-25 MG TABLET PO SCH (10:00)
[2019-09-06] MEDS ORDERED: PRENATAL VITAMINS W/ FOLIC ACID TABLET (FP) PO SCH (10:00)
[2019-09-06] MEDS ORDERED: NICOTINE 14 MG/24 HOURS TOPICAL PATCH TD SCH (10:00)
== END 2019-09-06 10:36 | disposition left against medical advice (07) | DRG 770 ==
LOC: YASAS 13:04 → Y3E 13:05
PROVIDERS: ADMIT Allergy & Immunology; ATTEND Allergy & Immunology
PROC: HZ42ZZZ Group Counseling for Substance Abuse Treatment, Cognitive-Behavioral (ICD-10-PCS; principal; 2019-09-05)
DX: F10.20 Alcohol dependence, uncomplicated (principal); F14.20 Cocaine dependence, uncomplicated; Z21 Asymptomatic human immunodeficiency virus [HIV] infection status; Z99.89 Dependence on other enabling machines and devices

== ENCOUNTER 2020-09-18 13:01 | Inpatient (IN) | payer OTHER ==
[2020-09-18 14:41] VITALS: BMI 23.7
[2020-09-18] MEDS ORDERED: MAGNESIUM CITRATE 300 ML BOTTLE PO PRN (20:46)
[2020-09-18] MEDS ORDERED: BISMUTH SUBSALICYLATE 524 MG/30 ML UD PO PRN (20:46)
[2020-09-18] MEDS ORDERED: NICOTINE POLACRILEX 2 MG GUM BUC PRN (20:46)
[2020-09-18] MEDS ORDERED: MENTHOL/PHENOL 1 EACH UD MM PRN (20:46)
[2020-09-18] MEDS ORDERED: MAG HYDROX/AL HYDROX/SIMETH 30 ML UNIT-DOSE CUP PO PRN (20:46)
[2020-09-18] MEDS ORDERED: P-EPHED 60MG/TRIPROLIDI 2.5MG TABLET PO PRN (20:46)
[2020-09-18] MEDS ORDERED: ONDANSETRON *ODT* 4 MG TABLET SL PRN (20:46)
[2020-09-18] MEDS ORDERED: ACETAMINOPHEN 325 MG TABLET (FP) PO PRN ×2 (20:46)
[2020-09-18] MEDS ORDERED: MAGNESIUM HYDROX 2400MG/30ML ORAL SUSPENSION 30 ML CUP PO PRN (20:46)
[2020-09-18] MEDS ORDERED: DICYCLOMINE HCL 10 MG CAPSULE PO PRN (20:46)
[2020-09-18] MEDS ORDERED: IBUPROFEN 400 MG TABLET (FP) PO PRN (20:46)
[2020-09-18] MEDS ORDERED: chlordiazePOXIDE HCL 25 MG CAPSULE PO PRN (20:46)
[2020-09-18] MEDS ORDERED: guaiFENesin 200 MG/10 ML 10 ML UNIT-DOSE CUPS PO PRN (20:46)
[2020-09-18] MEDS ORDERED: METHOCARBAMOL 500 MG TABLET PO PRN (20:46)
[2020-09-18] MEDS ORDERED: ALBUTEROL SO4 HFA INHALER IH PRN (20:48)
[2020-09-18] MEDS: MELATONIN 5 MG TABLETS PO SCH (23:23)
[2020-09-18] MEDS: THIAMINE HCL 100 MG TABLET (FP) PO SCH (23:23)
[2020-09-18] MEDS: chlordiazePOXIDE HCL 25 MG CAPSULE PO SCH (23:24)
[2020-09-19] MEDS: chlordiazePOXIDE HCL 25 MG CAPSULE PO SCH ×4 (05:58→22:48)
[2020-09-19 10:28] LABS: POTASSIUM 3.9 mmol/L (3.5-5.1)
[2020-09-19 10:30] LABS: HEMATOCRIT 37.2 % (32.4-45.2); HEMOGLOBIN 12.5 GM/dL (10.7-15.3); MCH 28.4 pg (25.7-33.7); MCHC 33.6 g/dl (32.0-36.0); MEAN CELL VOLUME 84.7 fl (80-96); MEAN PLT VOLUME 9.6 fl (7.5-11.1); PLATELET COUNT 123 K/MM3 (134-434); RBC 4.39 M/mm3 (3.60-5.2); RDW 13.2 % (11.6-15.6); WHITE BLOOD COUNT 3.3 K/mm3 (4.0-10.0)
[2020-09-19 10:34] LABS: CALCIUM 8.6 mg/dL (8.5-10.1)
[2020-09-19 10:35] LABS: ALBUMIN 3.5 g/dl (3.4-5.0); BLOOD UREA NITROGEN 9.6 mg/dL (7-18)
[2020-09-19 10:38] LABS: BILIRUBIN,TOTAL 0.3 mg/dL (0.2-1); CREATININE 0.7 mg/dL (0.55-1.3)
[2020-09-19] MEDS: PRENATAL VITAMINS W/ FOLIC ACID TABLET (FP) PO SCH (14:00)
[2020-09-19] MEDS ORDERED: GABAPENTIN 400 MG CAPSULE PO SCH (14:00)
[2020-09-19] MEDS: BICTEGRAV/EMTRICIT/TENOFOV (BIKTARVY) 50-200-25 MG TABLET PO SCH (14:01)
[2020-09-19] MEDS: NICOTINE 21 MG/24 HOURS TOPICAL PATCH TD SCH (14:02)
[2020-09-19] MEDS: MELATONIN 5 MG TABLETS PO SCH (22:48)
[2020-09-19] MEDS: QUEtiapine FUMARATE 50 MG TABLET PO SCH (22:48)
[2020-09-19] MEDS: THIAMINE HCL 100 MG TABLET (FP) PO SCH (22:48)
[2020-09-20] MEDS ORDERED: chlordiazePOXIDE HCL 25 MG CAPSULE PO SCH (05:00)
[2020-09-20] MEDS: chlordiazePOXIDE HCL 10 MG CAPSULE PO SCH ×4 (06:06→23:13)
[2020-09-20] MEDS: BICTEGRAV/EMTRICIT/TENOFOV (BIKTARVY) 50-200-25 MG TABLET PO SCH (10:42)
[2020-09-20] MEDS: NICOTINE 21 MG/24 HOURS TOPICAL PATCH TD SCH (10:42)
[2020-09-20] MEDS: PRENATAL VITAMINS W/ FOLIC ACID TABLET (FP) PO SCH (10:42)
[2020-09-20] MEDS: MELATONIN 5 MG TABLETS PO SCH (23:12)
[2020-09-20] MEDS: QUEtiapine FUMARATE 50 MG TABLET PO SCH (23:12)
[2020-09-20] MEDS: THIAMINE HCL 100 MG TABLET (FP) PO SCH (23:13)
[2020-09-21] MEDS ORDERED: chlordiazePOXIDE HCL 10 MG CAPSULE PO PRN
[2020-09-21] MEDS ORDERED: chlordiazePOXIDE HCL 10 MG CAPSULE PO SCH ×2 (05:00)
[2020-09-21 07:06] VITALS: TEMP 97.5
[2020-09-21] MEDS: NICOTINE 21 MG/24 HOURS TOPICAL PATCH TD SCH (09:48)
[2020-09-21] MEDS: PRENATAL VITAMINS W/ FOLIC ACID TABLET (FP) PO SCH (09:48)
[2020-09-21] MEDS: BICTEGRAV/EMTRICIT/TENOFOV (BIKTARVY) 50-200-25 MG TABLET PO SCH (09:48)
[2020-09-21 12:25] VITALS: BP 101/70; PULSE 76
[2020-09-22] MEDS ORDERED: chlordiazePOXIDE HCL 10 MG CAPSULE PO SCH (05:00)
[2020-09-22] MEDS ORDERED: chlordiazePOXIDE HCL 10 MG CAPSULE PO ONE (05:00)
[2020-09-23] MEDS ORDERED: chlordiazePOXIDE HCL 10 MG CAPSULE PO ONE (05:00)
== END 2020-09-21 10:40 | disposition home or self-care (01) | DRG 774 ==
LOC: YASAS 13:01 → Y3N 21:51
PROVIDERS: ADMIT Allergy & Immunology; ATTEND Allergy & Immunology
PROC: HZ2ZZZZ Detoxification Services for Substance Abuse Treatment (ICD-10-PCS; principal; 2020-09-18)
DX: F10.230 Alcohol dependence with withdrawal, uncomplicated (principal); F14.20 Cocaine dependence, uncomplicated; F17.210 Nicotine dependence, cigarettes, uncomplicated; F10.282 Alcohol dependence with alcohol-induced sleep disorder; F51.05 Insomnia due to other mental disorder; Z21 Asymptomatic human immunodeficiency virus [HIV] infection status; D69.6 Thrombocytopenia, unspecified; G62.9 Polyneuropathy, unspecified; A53.0 Latent syphilis, unspecified as early or late; G40.909 Epilepsy, unspecified, not intractable, without status epilepticus; J44.9 Chronic obstructive pulmonary disease, unspecified; J45.20 Mild intermittent asthma, uncomplicated; L85.3 Xerosis cutis; B35.1 Tinea unguium; R73.9 Hyperglycemia, unspecified; R03.0 Elevated blood-pressure reading, without diagnosis of hypertension; R63.4 Abnormal weight loss; Z68.23 Body mass index [BMI] 23.0-23.9, adult; Z99.89 Dependence on other enabling machines and devices
CPT/HCPCS: 36415; 80053; 82947; 83036; 85027; 86593; 86780; C9803; U0003

== ENCOUNTER 2021-05-04 09:33 | Inpatient (IN) | payer OTHER ==
[2021-05-04 11:28] VITALS: BMI 20.1
[2021-05-04] MEDS ORDERED: MENTHOL/PHENOL 1 EACH UD MM PRN (12:28)
[2021-05-04] MEDS ORDERED: LORazepam 1 MG TABLET PO PRN (12:28)
[2021-05-04] MEDS ORDERED: BISMUTH SUBSALICYLATE 262 MG/15 ML BTL PO PRN (12:28)
[2021-05-04] MEDS ORDERED: ACETAMINOPHEN 325 MG TABLET (FP) PO PRN ×2 (12:28)
[2021-05-04] MEDS ORDERED: IBUPROFEN 400 MG TABLET (FP) PO PRN (12:28)
[2021-05-04] MEDS ORDERED: NICOTINE 10 MG CARTRIDGE (INHALER) IH PRN (12:28)
[2021-05-04] MEDS ORDERED: MAGNESIUM CITRATE 300 ML BOTTLE PO PRN (12:28)
[2021-05-04] MEDS ORDERED: MAG HYDROX/AL HYDROX/SIMETH 30 ML UNIT-DOSE CUP PO PRN (12:28)
[2021-05-04] MEDS ORDERED: MAGNESIUM HYDROX 2400MG/30ML ORAL SUSPENSION 30 ML CUP PO PRN (12:28)
[2021-05-04] MEDS ORDERED: ONDANSETRON *ODT* 4 MG TABLET SL PRN (12:28)
[2021-05-04] MEDS ORDERED: METHOCARBAMOL 500 MG TABLET PO PRN (12:28)
[2021-05-04] MEDS ORDERED: ALBUTEROL SO4 HFA INHALER IH PRN (12:31)
[2021-05-04] MEDS ORDERED: hydrOXYzine PAMOATE 25 MG CAPSULE (FP) PO SCH (14:00)
[2021-05-04] MEDS: PRENATAL VITAMINS W/ FOLIC ACID TABLET (FP) PO SCH (14:10)
[2021-05-04] MEDS: NICOTINE 14 MG/24 HOURS TOPICAL PATCH TD SCH (14:10)
[2021-05-04] MEDS ORDERED: hydrOXYzine PAMOATE 25 MG CAPSULE (FP) PO PRN (14:27)
[2021-05-04 16:47] LABS: ALBUMIN 3.6 g/dl (3.4-5.0); BLOOD UREA NITROGEN 11.7 mg/dL (7-18); CALCIUM 9.7 mg/dL (8.5-10.1)
[2021-05-04 16:51] LABS: CREATININE 0.7 mg/dL (0.55-1.3)
[2021-05-04 16:52] LABS: BILIRUBIN,TOTAL 0.3 mg/dL (0.2-1)
[2021-05-04 17:15] LABS: HEMATOCRIT 37.1 % (32.4-45.2); HEMOGLOBIN 12.4 GM/dL (10.7-15.3); MCH 28.6 pg (25.7-33.7); MCHC 33.5 g/dl (32.0-36.0); MEAN CELL VOLUME 85.3 fl (80-96); MEAN PLT VOLUME 9.7 fl (7.5-11.1); PLATELET COUNT 154 10^3/uL (134-434); RBC 4.34 M/mm3 (3.60-5.2); RDW 13.2 % (11.6-15.6); WHITE BLOOD COUNT 3.4 K/mm3 (4.0-10.0)
[2021-05-04] MEDS: LORazepam 2 MG TABLET PO SCH ×2 (17:16→22:11)
[2021-05-04] MEDS ORDERED: QUEtiapine FUMARATE 50 MG TABLET PO SCH (22:00)
[2021-05-04] MEDS ORDERED: MELATONIN 5 MG TABLETS PO SCH (22:00)
[2021-05-04] MEDS ORDERED: THIAMINE HCL 100 MG TABLET (FP) PO SCH (22:00)
[2021-05-05] MEDS: LORazepam 2 MG TABLET PO SCH ×2 (05:38→10:15)
[2021-05-05] MEDS ORDERED: BICTEGRAV/EMTRICIT/TENOFOV (BIKTARVY) 50-200-25 MG TABLET PO SCH (08:00)
[2021-05-05] MEDS: PRENATAL VITAMINS W/ FOLIC ACID TABLET (FP) PO SCH (10:14)
[2021-05-05] MEDS: NICOTINE 14 MG/24 HOURS TOPICAL PATCH TD SCH (11:08)
[2021-05-05 12:53] VITALS: BP 128/68; PULSE 70; TEMP 98.3
[2021-05-06] MEDS ORDERED: LORazepam 1 MG TABLET PO SCH (05:00)
[2021-05-07] MEDS ORDERED: LORazepam 0.5 MG TABLET PO PRN
[2021-05-07] MEDS ORDERED: LORazepam 0.5 MG TABLET PO SCH (05:00)
[2021-05-08] MEDS ORDERED: LORazepam 0.5 MG TABLET PO ONE (05:00)
== END 2021-05-05 14:15 | disposition left against medical advice (07) | DRG 770 ==
LOC: YASAS 09:33 → Y3N 12:57
PROVIDERS: ADMIT Allergy & Immunology; ATTEND Allergy & Immunology
PROC: HZ2ZZZZ Detoxification Services for Substance Abuse Treatment (ICD-10-PCS; principal; 2021-05-04)
DX: F10.230 Alcohol dependence with withdrawal, uncomplicated (principal); F14.20 Cocaine dependence, uncomplicated; F12.20 Cannabis dependence, uncomplicated; F17.210 Nicotine dependence, cigarettes, uncomplicated; F51.05 Insomnia due to other mental disorder; F19.282 Other psychoactive substance dependence with psychoactive substance-induced sleep disorder; G40.909 Epilepsy, unspecified, not intractable, without status epilepticus; Z21 Asymptomatic human immunodeficiency virus [HIV] infection status; J45.20 Mild intermittent asthma, uncomplicated; R76.11 Nonspecific reaction to tuberculin skin test without active tuberculosis; M54.50 Low back pain, unspecified; G89.29 Other chronic pain; L30.9 Dermatitis, unspecified; B35.1 Tinea unguium; G62.9 Polyneuropathy, unspecified; R63.4 Abnormal weight loss; R26.2 Difficulty in walking, not elsewhere classified; Z99.89 Dependence on other enabling machines and devices; Z86.19 Personal history of other infectious and parasitic diseases; Z62.810 Personal history of physical and sexual abuse in childhood; Z56.0 Unemployment, unspecified
CPT/HCPCS: 36415; 80053; 85027; 86593; 86780; C9803; U0003; U0005

== ENCOUNTER 2023-01-04 11:43 | Inpatient (IN) | payer OTHER ==
[2023-01-04 12:08] VITALS: BMI 16.9
[2023-01-04] MEDS ORDERED: LOPERAMIDE HCL 2 MG CAPSULE PO PRN (13:57)
[2023-01-04] MEDS ORDERED: NALOXONE HCL (KLOXXADO) 8 MG SPRAY NS PRN (13:57)
[2023-01-04] MEDS ORDERED: COLLOIDAL OATMEAL 1 BAR EACH TP PRN (13:57)
[2023-01-04] MEDS ORDERED: TUBERCULIN PPD 5 TU/0.1ML VIAL ID ONE ×2 (13:57→15:22)
[2023-01-04] MEDS ORDERED: AMMONIUM LACTATE 12% LOTION 225 GM BOTTLE TP PRN (13:57)
[2023-01-04] MEDS ORDERED: ACETAMINOPHEN 325 MG TABLET (FP) PO PRN (13:57)
[2023-01-04] MEDS ORDERED: BENZOCAINE/MENTHOL (CHLORASEPTIC ) LOZENGE MM PRN (13:57)
[2023-01-04] MEDS ORDERED: MAGNESIUM HYDROX 2400MG/30ML ORAL SUSPENSION 30 ML CUP PO PRN (13:57)
[2023-01-04] MEDS ORDERED: POLYETHYLENE GLYCOL (HEALTHYLAX) 3350 17 GM PACKET PO PRN (13:57)
[2023-01-04] MEDS ORDERED: BENZONATATE 200 MG CAPSULE PO PRN (13:57)
[2023-01-04] MEDS ORDERED: MAG HYDROX/AL HYDROX/SIMETH 30 ML UNIT-DOSE CUP PO PRN (13:57)
[2023-01-04] MEDS ORDERED: IBUPROFEN 600 MG TABLET (FP) PO PRN (13:57)
[2023-01-04] MEDS ORDERED: hydrOXYzine PAMOATE 25 MG CAPSULE (FP) PO PRN (13:57)
[2023-01-04] MEDS ORDERED: guaiFENesin 600 MG TABLET.ER (FP) PO PRN (13:57)
[2023-01-04] MEDS ORDERED: IBUPROFEN 400 MG TABLET (FP) PO PRN (13:57)
[2023-01-04] MEDS ORDERED: NALOXONE HCL 0.4 MG/ML VIAL IM PRN (13:57)
[2023-01-04] MEDS ORDERED: ALBUTEROL SO4 HFA INHALER IH PRN (14:00)
[2023-01-04] MEDS: PRENATAL VITAMINS W/ FOLIC ACID TABLET (FP) PO SCH (15:27)
[2023-01-04] MEDS: NICOTINE 14 MG/24 HOURS TOPICAL PATCH TD SCH (15:27)
[2023-01-04 17:09] LABS: HEMATOCRIT 37.2 % (32.4-45.2); HEMOGLOBIN 12.4 GM/dL (10.7-15.3); MCH 27.6 pg (25.7-33.7); MCHC 33.3 g/dl (32.0-36.0); MEAN CELL VOLUME 82.9 fl (80-96); MEAN PLT VOLUME 9.4 fl (7.5-11.1); PLATELET COUNT 124 10^3/uL (134-434); RBC 4.49 M/mm3 (3.60-5.2); RDW 14.3 % (11.6-15.6); WHITE BLOOD COUNT 3.3 K/mm3 (4.0-10.0)
[2023-01-04 17:11] LABS: CALCIUM 8.6 mg/dL (8.5-10.1)
[2023-01-04 17:12] LABS: ALBUMIN 3.2 g/dl (3.4-5.0); BLOOD UREA NITROGEN 10.8 mg/dL (7-18)
[2023-01-04 17:15] LABS: CREATININE 0.8 mg/dL (0.55-1.3)
[2023-01-04 17:17] LABS: BILIRUBIN,TOTAL 0.3 mg/dL (0.2-1); TOT PROT 7.7 g/dl (6.4-8.2)
[2023-01-04 18:14] LABS: SYPHILIS W/ RPR CONF REACTIVE (NONREACTIVE)
[2023-01-04] MEDS: QUEtiapine FUMARATE 50 MG TABLET PO SCH (21:23)
[2023-01-04] MEDS: THIAMINE HCL 100 MG TABLET (FP) PO SCH (21:24)
[2023-01-04] MEDS: MELATONIN 5 MG TABLETS PO SCH (21:35)
[2023-01-05] MEDS: BICTEGRAV/EMTRICIT/TENOFOV (BIKTARVY) 50-200-25 MG TABLET PO SCH (07:30)
[2023-01-05] MEDS: PRENATAL VITAMINS W/ FOLIC ACID TABLET (FP) PO SCH (11:46)
[2023-01-05] MEDS: NICOTINE 14 MG/24 HOURS TOPICAL PATCH TD SCH (11:46)
[2023-01-05] MEDS: MELATONIN 5 MG TABLETS PO SCH (21:40)
[2023-01-05] MEDS: QUEtiapine FUMARATE 50 MG TABLET PO SCH (21:40)
[2023-01-05] MEDS: THIAMINE HCL 100 MG TABLET (FP) PO SCH (21:47)
[2023-01-06] MEDS: BICTEGRAV/EMTRICIT/TENOFOV (BIKTARVY) 50-200-25 MG TABLET PO SCH (07:15)
[2023-01-06] MEDS: PRENATAL VITAMINS W/ FOLIC ACID TABLET (FP) PO SCH (10:08)
[2023-01-06] MEDS: NICOTINE 14 MG/24 HOURS TOPICAL PATCH TD SCH (10:08)
[2023-01-06] MEDS: CLOTRIMAZOLE 10 MG TROCHE PO SCH ×4 (10:54→21:29)
[2023-01-06] MEDS: NYSTATIN 500,000 UNITS/5 ML SUSPENSION PO SCH ×2 (13:10→21:32)
[2023-01-06] MEDS: NICOTINE 10 MG CARTRIDGE (INHALER) IH PRN (16:03)
[2023-01-06] MEDS: MELATONIN 5 MG TABLETS PO SCH (21:29)
[2023-01-06] MEDS: THIAMINE HCL 100 MG TABLET (FP) PO SCH (21:29)
[2023-01-06] MEDS: QUEtiapine FUMARATE 50 MG TABLET PO SCH (21:30)
[2023-01-07] MEDS: CLOTRIMAZOLE 10 MG TROCHE PO SCH ×4 (06:38→19:06)
[2023-01-07] MEDS: NYSTATIN 500,000 UNITS/5 ML SUSPENSION PO SCH ×2 (06:38→14:41)
[2023-01-07] MEDS: BICTEGRAV/EMTRICIT/TENOFOV (BIKTARVY) 50-200-25 MG TABLET PO SCH (07:22)
[2023-01-07] MEDS: NICOTINE 14 MG/24 HOURS TOPICAL PATCH TD SCH (10:35)
[2023-01-07] MEDS: PRENATAL VITAMINS W/ FOLIC ACID TABLET (FP) PO SCH (10:35)
[2023-01-07] MEDS: NICOTINE 10 MG CARTRIDGE (INHALER) IH PRN (10:35)
[2023-01-07 10:54] VITALS: BP 105/57; PULSE 80; RESP 16; TEMP 97.3
== END 2023-01-07 22:17 | disposition short-term general hospital (02) | DRG 772 ==
LOC: YASAS 11:43 → Y5N 13:13
PROVIDERS: ADMIT Allergy & Immunology; ATTEND Psychiatry & Neurology Pain Medicine
PROC: HZ42ZZZ Group Counseling for Substance Abuse Treatment, Cognitive-Behavioral (ICD-10-PCS; principal; 2023-01-04)
DX: F14.20 Cocaine dependence, uncomplicated (principal); F17.210 Nicotine dependence, cigarettes, uncomplicated; F19.282 Other psychoactive substance dependence with psychoactive substance-induced sleep disorder; F51.05 Insomnia due to other mental disorder; B20 Human immunodeficiency virus [HIV] disease; B37.0 Candidal stomatitis; G62.9 Polyneuropathy, unspecified; J45.20 Mild intermittent asthma, uncomplicated; M54.50 Low back pain, unspecified; R13.10 Dysphagia, unspecified; R26.1 Paralytic gait; R63.4 Abnormal weight loss; Z68.1 Body mass index [BMI] 19.9 or less, adult; Z99.89 Dependence on other enabling machines and devices; Z86.19 Personal history of other infectious and parasitic diseases; Z28.310 Unvaccinated for COVID-19; Z28.9 Immunization not carried out for unspecified reason
CPT/HCPCS: 36415; 80053; 82962; 85027; 86593; 86780; 86803; 87635; 87811

== ENCOUNTER 2023-01-07 11:27 | Observation (INO) | payer OTHER ==
[2023-01-07] MEDS ORDERED: FLUCONAZOLE 200 MG/NS 100 ML IVPB ONE (12:34)
[2023-01-07 13:44] LABS: EOS % 9.7 % (0-4.5); HEMATOCRIT 37.3 % (32.4-45.2); HEMOGLOBIN 11.8 GM/dL (10.7-15.3); LYMPH % 38.8 % (8-40); MCH 26.8 pg (25.7-33.7); MCHC 31.7 g/dl (32.0-36.0); MEAN CELL VOLUME 84.6 fl (80-96); MEAN PLT VOLUME 10.2 fl (7.5-11.1); MONO % 7.8 % (3.8-10.2); NEUT % 42.7 % (42.8-82.8); PLATELET COUNT 129 10^3/uL (134-434); WHITE BLOOD COUNT 3.9 K/mm3 (4.0-10.0)
[2023-01-07 14:10] LABS: POTASSIUM 4.9 mmol/L (3.5-5.1)
[2023-01-07 14:12] LABS: BLOOD UREA NITROGEN 17.3 mg/dL (7-18); CALCIUM 9.5 mg/dL (8.5-10.1)
[2023-01-07 14:13] LABS: ALBUMIN 3.4 g/dl (3.4-5.0)
[2023-01-07 14:16] LABS: CREATININE 0.6 mg/dL (0.55-1.3)
[2023-01-07 14:17] LABS: BILIRUBIN,TOTAL 0.2 mg/dL (0.2-1); TOT PROT 7.9 g/dl (6.4-8.2)
[2023-01-07] MEDS ORDERED: PENICILLIN G BENZATHINE 2,400,000 UNIT/4 ML PFS IM ONE (15:03)
[2023-01-07] MEDS ORDERED: ALBUTEROL SO4 HFA INHALER IH PRN (15:39)
[2023-01-07] MEDS ORDERED: FLUCONAZOLE 400 MG/NS 200 ML IVPB ONE (15:41)
[2023-01-07] MEDS ORDERED: ACETAMINOPHEN 500 MG TABLET (FP) PO PRN (15:43)
[2023-01-07] MEDS ORDERED: LORazepam 2 MG/ML SDV VIAL IVPUSH PRN (15:53)
[2023-01-07] MEDS ORDERED: NICOTINE 14 MG/24 HOURS TOPICAL PATCH TD ONE (16:25)
[2023-01-07] MEDS: NICOTINE 14 MG/24 HOURS TOPICAL PATCH TD SCH (17:04)
[2023-01-07] MEDS: MAG HYDROX/ALH/SMC/DPHA/LIDO 240 ML MOUTHWASH MM SCH (17:36)
[2023-01-07] MEDS: QUEtiapine FUMARATE 25 MG TABLET PO SCH (22:18)
[2023-01-07] MEDS: HEPARIN NA (PORCINE) 5,000 UNITS/ML 1ML VIAL SQ SCH (22:19)
[2023-01-08] MEDS: MAG HYDROX/ALH/SMC/DPHA/LIDO 240 ML MOUTHWASH MM SCH ×5 (01:05→23:49)
[2023-01-08 08:44] LABS: EOS % 10.6 % (0-4.5); HEMOGLOBIN 11.5 GM/dL (10.7-15.3); LYMPH % 43.9 % (8-40); MCHC 31.9 g/dl (32.0-36.0); MEAN CELL VOLUME 84.6 fl (80-96); MEAN PLT VOLUME 9.9 fl (7.5-11.1); MONO % 11.2 % (3.8-10.2); NEUT % 33.3 % (42.8-82.8); PLATELET COUNT 100 10^3/uL (134-434); RBC 4.25 M/mm3 (3.60-5.2); RDW 14.2 % (11.6-15.6); WHITE BLOOD COUNT 2.9 K/mm3 (4.0-10.0)
[2023-01-08 09:00] LABS: POTASSIUM 4.1 mmol/L (3.5-5.1)
[2023-01-08 09:29] LABS: BLOOD UREA NITROGEN 16.2 mg/dL (7-18); CALCIUM 8.9 mg/dL (8.5-10.1)
[2023-01-08 09:33] LABS: CREATININE 0.7 mg/dL (0.55-1.3)
[2023-01-08] MEDS ORDERED: FLUCONAZOLE 200 MG/NS 100 ML IVPB SCH (10:00)
[2023-01-08] MEDS ORDERED: FLUCONAZOLE 100 MG TABLET (UD) PO SCH (10:15)
[2023-01-08] MEDS: THIAMINE HCL 100 MG TABLET (FP) PO SCH (10:36)
[2023-01-08] MEDS: BICTEGRAV/EMTRICIT/TENOFOV (BIKTARVY) 50-200-25 MG TABLET PO SCH (10:37)
[2023-01-08] MEDS: NICOTINE 14 MG/24 HOURS TOPICAL PATCH TD SCH (10:37)
[2023-01-08] MEDS: HEPARIN NA (PORCINE) 5,000 UNITS/ML 1ML VIAL SQ SCH ×3 (10:37→21:39)
[2023-01-08] MEDS: FLUCONAZOLE 100 MG TABLET (UD) PO SCH (11:15)
[2023-01-08] MEDS: QUEtiapine FUMARATE 25 MG TABLET PO SCH (21:38)
[2023-01-08] MEDS ORDERED: hydrOXYzine PAMOATE 25 MG CAPSULE (FP) PO ONE (23:45)
[2023-01-09] MEDS: MAG HYDROX/ALH/SMC/DPHA/LIDO 240 ML MOUTHWASH MM SCH ×3 (06:07→17:17)
[2023-01-09] MEDS: HEPARIN NA (PORCINE) 5,000 UNITS/ML 1ML VIAL SQ SCH (10:52)
[2023-01-09] MEDS: THIAMINE HCL 100 MG TABLET (FP) PO SCH (10:52)
[2023-01-09] MEDS: BICTEGRAV/EMTRICIT/TENOFOV (BIKTARVY) 50-200-25 MG TABLET PO SCH (10:53)
[2023-01-09] MEDS: FLUCONAZOLE 100 MG TABLET (UD) PO SCH (10:53)
[2023-01-09] MEDS: NICOTINE 14 MG/24 HOURS TOPICAL PATCH TD SCH ×2 (10:54→12:33)
[2023-01-09 11:14] LABS: BASO % 0.9 % (0-2.0); EOS % 10.8 % (0-4.5); HEMATOCRIT 40.1 % (32.4-45.2); HEMOGLOBIN 12.6 GM/dL (10.7-15.3); LYMPH % 40.9 % (8-40); MCH 26.7 pg (25.7-33.7); MCHC 31.5 g/dl (32.0-36.0); MEAN CELL VOLUME 84.7 fl (80-96); MEAN PLT VOLUME 10.1 fl (7.5-11.1); MONO % 11.3 % (3.8-10.2); NEUT % 36.1 % (42.8-82.8); PLATELET COUNT 159 10^3/uL (134-434); RBC 4.73 M/mm3 (3.60-5.2); RDW 13.9 % (11.6-15.6)
[2023-01-09 11:33] LABS: CHLORIDE 104 mmol/L (98-107); POTASSIUM 5.1 mmol/L (3.5-5.1); SODIUM 138 mmol/L (136-145)
[2023-01-09 11:35] LABS: CALCIUM 8.9 mg/dL (8.5-10.1)
[2023-01-09 11:36] LABS: ALBUMIN 3.3 g/dl (3.4-5.0); ANION GAP 5 MMOL/L (8-16); BLOOD UREA NITROGEN 15.8 mg/dL (7-18); CO2 28 mmol/L (21-32); GLUCOSE,RANDOM 72 mg/dL (74-106)
[2023-01-09 11:39] LABS: PHOSPHOROUS 2.9 mg/dL (2.5-4.9)
[2023-01-09 11:40] LABS: CREATININE 0.7 mg/dL (0.55-1.3); IRON SERUM 126 ug/dL (50-175); SGOT/AST 47 U/L (15-37); SGPT/ALT 52 U/L (13-61); TOTAL IRON BINDING CAPACITY 287 ug/dL (250-450)
[2023-01-09 11:41] LABS: BILIRUBIN,TOTAL 0.3 mg/dL (0.2-1)
[2023-01-09 11:42] LABS: ALK PHOS 55 U/L (45-117)
[2023-01-09] MEDS ORDERED: PEG 3350/NA SULF BICARB CL/KCL 4000 ML SOLN.RECON PO ONE (12:00)
[2023-01-09 14:53] VITALS: BMI 19.3
[2023-01-09 16:03] VITALS: RESP 18
[2023-01-09] MEDS ORDERED: BISACODYL 5 MG TABLET.DR (FP) PO ONE (18:00)
[2023-01-09] MEDS: QUEtiapine FUMARATE 25 MG TABLET PO SCH (21:27)
[2023-01-10] MEDS: MAG HYDROX/ALH/SMC/DPHA/LIDO 240 ML MOUTHWASH MM SCH ×3 (00:58→11:33)
[2023-01-10] MEDS: NICOTINE 14 MG/24 HOURS TOPICAL PATCH TD SCH ×2 (10:17→10:22)
[2023-01-10] MEDS: THIAMINE HCL 100 MG TABLET (FP) PO SCH (10:17)
[2023-01-10] MEDS: FLUCONAZOLE 100 MG TABLET (UD) PO SCH (10:18)
[2023-01-10] MEDS: BICTEGRAV/EMTRICIT/TENOFOV (BIKTARVY) 50-200-25 MG TABLET PO SCH (10:18)
[2023-01-10] MEDS ORDERED: PENICILLIN G BENZATHINE 2,400,000 UNIT/4 ML PFS IM SCH (12:00)
[2023-01-10 13:49] VITALS: BP 106/73; PULSE 84; TEMP 98.6
[2023-01-13 20:07] LABS: GLIADIN ANTIBODY IGA 11 units (0-19); GLIADIN ANTIBODY IGG 3 units (0-19); TRANSGLUTAMINASE IGG 10 U/mL (0-5)
== END 2023-01-10 14:30 | disposition home or self-care (01) ==
LOC: JER 11:27 → UNDOADMOB 14:15 → INTOOBSV 14:15 → JERBED 14:15 → J8W 18:28 → J5S 01-09 15:20 → OBSVTOIN 01-09 16:09 → INTOOBSV 01-09 16:09
PROVIDERS: ADMIT Internal Medicine; ATTEND Nurse Practitioner Acute Care
DX: B37.0 Candidal stomatitis (principal); F10.230 Alcohol dependence with withdrawal, uncomplicated; F14.20 Cocaine dependence, uncomplicated; G62.9 Polyneuropathy, unspecified; R13.10 Dysphagia, unspecified; J45.909 Unspecified asthma, uncomplicated; Z29.8 Encounter for other specified prophylactic measures; B20 Human immunodeficiency virus [HIV] disease; F17.210 Nicotine dependence, cigarettes, uncomplicated
CPT/HCPCS: 36415; 71046-TC-FY; 74177-TC; 74220-TC-FY; 80048; 80053; 82105; 82728; 82784; 83516; 83540; 83550; 83735; 84100; 85025; 86140; 86359; 86360; 86850; 86900; 86901; 87516; 87912; 93005; 93010; 96365; 96372; 99285-25; G0378; J1644; Q9967